=== PATIENT | female | born 1950 | race Caucasian/White ===

== ENCOUNTER 2020-11-16 13:58 | Outpatient (REF) | payer MEDICARE, SELFPAY ==
--- NOTE | ~2020-11-16 | XR_ITS ---
EXAMINATION: RIGHT FOOT AND RIGHT ANKLE. CLINICAL INFORMATION: Pain below and anterior right medial malleolus COMPARISON: None TECHNIQUE: 3 views right foot and 2 views right ankle. FINDINGS: RIGHT FOOT: There is no visible fracture, bony abnormality or dislocation. The soft tissues are normal. RIGHT ANKLE: The ankle mortise and subtalar joints are normal. There is a moderate size calcaneal heel spur. The soft tissues are normal. XR/XR ankle RT 2V IMPRESSION: Unremarkable right foot exam. Moderate-sized calcaneal heel enthesophyte. No acute fracture, dislocation or subluxation seen.
--- NOTE | ~2020-11-16 | XR_ITS ---
EXAMINATION: RIGHT FOOT AND RIGHT ANKLE. CLINICAL INFORMATION: Pain below and anterior right medial malleolus COMPARISON: None TECHNIQUE: 3 views right foot and 2 views right ankle. FINDINGS: RIGHT FOOT: There is no visible fracture, bony abnormality or dislocation. The soft tissues are normal. RIGHT ANKLE: The ankle mortise and subtalar joints are normal. There is a moderate size calcaneal heel spur. The soft tissues are normal. XR/XR foot RT min 3V IMPRESSION: Unremarkable right foot exam. Moderate-sized calcaneal heel enthesophyte. No acute fracture, dislocation or subluxation seen.
== END 2020-11-16 13:59 | disposition home or self-care (01) ==
LOC: HO.HMGCX 13:58
PROVIDERS: PCP Internal Medicine; Visit Provider Internal Medicine
DX: M25.571 Pain in right ankle and joints of right foot (principal)
CPT/HCPCS: 73600; 73630

== ENCOUNTER 2022-04-07 07:58 | Emergency (ER) | payer MEDICARE, OTHER, SELFPAY ==
[2022-04-07 08:02] VITALS: BP 178/71; PULSE 80; RESP 19; TEMP 36.6; O2SAT 99; BMI 26.6
--- NOTE | 2022-04-07 09:43 | ED.EYEPROB ---
HPI - Eye Problem General Chief complaint: Eye Problems Stated complaint: flashes of light in L eye Time Seen by Provider: 04/07/22 09:37 Source: patient Mode of arrival: ambulatory Limitations: no limitations History of Present Illness HPI Narrative: 71yo female with history of HTN, HLD who wears corrective lenses who presents with reports of flashing lights to the left eye since 3am. Patient reports these flashing lights are intermittent. After hearing a loud noise at 3am she woke up and noticed flashing lights to the left eye. She went back to bed and when she woke up she noticed continued symptoms. They have been intermittent since then. She denies associated eye floaters, vision changes, eye pain, eye discharge, headache, photophobia. Patient reports that she has see Dr. Diez however he recently left the practice. She does have an appointment with Dr. Bergman for her initial visit in September. She denies any history of glaucoma, retinal problems. Related Data Allergies Allergy/AdvReac Type Severity Reaction Status Date / Time scopolamine AdvReac Unknown Verified 04/07/22 09:21 Review of Systems Review of Systems: Yes all other systems are reviewed and are negative Constitutional: Constitutional: Reports no additional constitutional complaints, Denies body ache(s), Denies chills, Denies fever(s), Denies headache(s) and Denies weakness Eyes: Eyes: Reports no additional eye complaints, Denies blurry vision, Denies change in vision, Denies eye discharge, Denies irritation, Denies eye pain, Reports requires corrective lenses, Reports seeing flashes and Denies photophobia ENT: Reports system reviewed and no additional complaints, except as documented, Denies dizziness, Denies headache(s), Denies nasal congestion, Denies nasal discharge and Denies neck pain Cardiovascular: Cardiovascular: Reports no additional cardiovascular complaints, Denies chest pain, Denies leg edema and Denies dyspnea Respiratory: Respiratory: Reports no additional respiratory complaints, Denies cough and Denies dyspnea Gastrointestinal: Gastrointestinal: Reports no additional gastrointestinal complaints, Denies abdominal pain, Denies diarrhea, Denies nausea and Denies vomiting Genitourinary: Genitourinary: Reports no additional female genitourinary complaints and Denies urinary incontinence Musculoskeletal: Musculoskeletal: Reports no additional musculoskeletal complaints, Denies back pain, Denies arthralgias, Denies joint swelling, Denies neck pain, Denies numbness and Denies tingling Integumentary/Breasts: Skin/Breast: Reports system reviewed and no additional complaints, except as docu and Denies rash Neurologic: Reports system reviewed and no additional complaints, except as documented, Denies Abnormal speech present, Denies dizziness, Denies headache(s), Denies numbness, Denies tingling and Denies weakness [facility] Past Medical History Attestation statement: The following information was validated with the patient. Source: old records reviewed and nursing notes reviewed Social History Social History Advance Directives: Yes Advance Directives Information Provided: Yes Advance Directives on File: No Physical Exam Vital Signs: Vital Signs: Last Vital Signs Temp 98 F 04/07/22 08:02 Pulse 64 04/07/22 10:22 Resp 16 04/07/22 10:22 BP 165/77 H 04/07/22 10:22 Pulse Ox 97 04/07/22 10:22 O2 Del Method 04/07/22 10:22 BMI result Body Mass Index 26.6 Const: General: cooperative, healthy appearing, comfortable and no acute distress Orientation/consciousness: patient oriented x3 Limitations: no limitations HEENT: Head: Yes normal to inspection Ears: hearing grossly normal bilaterally General nose exam: Normal external nose present Face and sinus: Yes normal facial exam Mouth: Normal oral and palatal mucosa present Throat: Yes posterior oropharynx normal Eyes: Other: IOP right eye 14 IOP left eye 16 See visual acuity documentation by nursing -ultrasound bedside done by Dr. Finley. No retinal or lens detachment visualized. General: appearance normal, both eyes and all related structures Visual Arteaga: normal visual arteaga by confrontation Alignment and Position: alignment normal Periorbital: periorbital findings normal Eyelids: Yes eyelids normal Conjunctivae: conjunctivae normal Sclerae: sclerae normal Corneas: corneas normal Pupils: Equal, round and reactive pupils present EOM: EOMs intact bilaterally Direct Ophthalmoscopy: normal light reflex, no photophobia, no papilledema, fundi normal bilaterally, anterior chamber normal and No photophobia Neck: Neck: Yes normal visual inspection Chest: Chest palpation & inspection: normal inspection of the chest Resp: Effort & Inspection: normal respiratory effort Auscultation: clear to auscultation bilaterally Cardio: Rate: regular rate Rhythm: regular rhythm Peripheral pulses: Peripheral pulses 2+ throughout GI: Inspection: Yes normal to inspection Palpation (GI): Soft to palpation and nontender Auscultation: normal bowel sounds Back/Spine/Pelvis: Thoracic/Lumbar Spine: thoracic and lumbar spine normal to inspection Skin: General skin exam: no rashes or lesions noted Neuro: General: patient oriented x3, no focal motor deficits and normal sensation to monofilament Cranial nerves: Yes Equal, round and reactive pupils present Cognition (Neuro): normal cognition Speech: No Abnormal speech present Gait exam (Neuro): Normal gait present Motor exam (neuro): 5/5 motor strength present throughout Extrem: General: Yes normal to inspection Course Course Course Narrative: visual acuity is 20/25 bilaterally with corrective lenses. Eye pressures are normal. Eye exam is normal. Ultrasound of the left eye done by Dr. Finley at the bedside shows no obvious retinal detachment or lens detachment. Patient is mildly hypertensive. Patient will need to follow up outpatient with Ophthalmology. She tells me she does not have an appointment with Dr. Bergman until September of 2022. Will discuss patient with Ophthalmology prior to dispo to ensure adequate follow-up. Consultations Consultation #1: [id number]-Spoke to Dr Prabhakar who will see patient in office. Recommended patient call Saturday to establish appointment. MDM - Eye Problem MDM Narrative Medical decision making narrative: This is a 71-year-old female who wears corrective lenses with a history of hypertension, hyperlipidemia who presents with intermittent flashing lights to the left eye since 03:00 with no associated headache, photophobia, eye floaters, eye pain, eye discharge, visual changes. Patient denies any recent travel or recent cough or cold symptoms. No injury or trauma. Will need visual acuity, eye exam, eye pressures and retinal ultrasound Consider retinal detachment, acute angle glaucoma Medical Records Attestation: I reviewed the patient's medical records. Lab Data Attestation: I reviewed the patient's lab results. Discharge Plan Discharge Clinical Impression: Flashing lights Patient Disposition: Home, Self-Care Instructions: Blurred Vision (ED) Additional Instructions: Everything looks normal today on your eye exam. I did speak to the moisture machine tender Dr. Bergman and he recommended that you call his office on Saturday to set up an appointment to see him in the next few weeks. Return for eye pain, floaters in the vision, curtain of blackness coming over the eye Referrals: Al Bergman [Physician] - 3 days Interventions: ED Discharge Assessment Last Done: 04/07/22 10:57 Discharge Date/Time: 04/07/22 10:58
[2022-04-07 10:22] VITALS: BP 165/77; PULSE 64; RESP 16; O2SAT 97
[2022-04-07] MEDS: Tetracaine HCl/PF 0.5% Oph Sol 4 ML DROPS 1 DROP EYE-BOTH (10:22)
== END 2022-04-07 10:58 | disposition home or self-care (01) ==
PROVIDERS: Emergency Provider Emergency Medicine; PCP Internal Medicine
DX: H53.8 Other visual disturbances (principal)
CPT/HCPCS: 99283

== ENCOUNTER 2023-07-19 09:15 | Outpatient (REF) | payer MEDICARE, OTHER, SELFPAY | END 2023-07-19 09:16 | disposition home or self-care (01) | LOC: HO.SH 09:15 | PROVIDERS: Visit Provider Internal Medicine | DX: Z01.118 Encounter for examination of ears and hearing with other abnormal findings (principal); H90.3 Sensorineural hearing loss, bilateral | CPT/HCPCS: 92557 ==

== ENCOUNTER 2024-07-02 12:55 | Outpatient (REF) | payer MEDICARE, SELFPAY | END 2024-07-02 12:56 | disposition home or self-care (01) | LOC: HO.HMGCX 12:55 | PROVIDERS: PCP Internal Medicine; Visit Provider Internal Medicine | DX: M25.561 Pain in right knee (principal) | CPT/HCPCS: 73564 ==

== ENCOUNTER 2025-01-13 09:15 | Outpatient (AMB) | payer MEDICARE, SELFPAY ==
--- NOTE | 2025-01-13 09:20 | A.OFFPC_ITS ---
Vital Signs 01/13/25 09:28 Height 5 ft 3.58 in Weight 170 lb 8 oz BMI 29.7 BP 138/80 Blood Pressure Location Rt brachial Position Sitting Respiration 16 Pulse 62 Pulse Source Pulse Oximeter Temp 97.2 F Temp Source Temporal Artery Scan Pulse Oximetry (%) 96 Oxygen Delivery Method Room Air Intake Visit Reasons: Establish Care Equipment Sterilizer Required: No Accompanied by: Self / Same As Patient Allergies scopolamine Adverse Reaction (Verified 01/13/25 10:40) Unknown Medication List - Last Reconciled 01/13/25 by Mariaelena Michaels PA-C calcium carbonate 600 mg PO BID cholecalciferol (vitamin D3) 50 mcg PO DAILY loratadine (Claritin) 10 mg PO DAILY metoprolol tartrate 50 mg PO BID naproxen 500 mg PO BID simvastatin 20 mg PO DAILY Tobacco use date assessed: 01/13/25 Fall risk assessment: 1 Fall in past year Last assessed Fall Risk: 01/13/25 Dental Screening Dental Screen Date: 01/13/25 Did you have a dental visit in the last 12 months?: Yes Did you have a dental problem in the last 6 months where you did not have access to dental care?: No Was dental information given to patient?: Patient has dentist HPI Establish Care HPI Details The patient is a 74-year-old female presenting for establishment of care and management of chronic conditions. The patient has a history of vitamin D deficiency, for which she is currently taking supplements. She reports allergic rhinitis, managed with Claritin and weekly allergy injections at Dr. Quinones's office. Hypertension is controlled with metoprolol, and she also takes simvastatin for h yperlipidemia. The patient experienced a fall resulting in knee pain, diagnosed as osteoarthritis, managed with naproxen. She has flatfoot, diagnosed several years ago, and uses orthotics for manage ment. Recently, she developed peripheral neuropathy in the right foot, treated with naproxen and a Medrol pack. The patient has a history of urinary tract infections, treated with Bactrim DS and Augmentin. She was diagnosed with osteopenia following a bone scan two years ago and started on calcium carbonate. A heart murmur was noted during the examination, and an echocardiogram was suggested for further evaluation. Suspected sleep apnea was discussed, and a home sleep study was recommended. Social History - Family status: , underg oing physical therapy after femur fracture. [facility] Medical History (Updated 01/13/25 @ 13:04 by Mariaelena Michaels PA-C) Peripheral neuropathy Allergic rhinitis Vitamin D deficiency Overweight with body mass index (BMI) of 29 to 29.9 in adult Osteopenia Osteoporosis Needs sleep apnea assessment Heart murmur History of mammogram (~08/11/24) Flat foot Hypertension Hyperlipidemia History of recurrent UTI (urinary tract infection) Establishing care with new doctor, encounter for Surgical History History of colonoscopy (~02/2024) Family History Father Oral cancer Mother Dementia Social History Housing: House Alcohol intake: current Alcohol intake frequency: a few times a week Alcohol type: wine Patient Tobacco Use Status: Never used Tobacco service: No Current occupational status: retired Cognitive needs: No Hearing needs: No Vision needs: Yes (rx glasses) Questionnaire PHQ-9 Over the last 2 weeks, how often have you been bothered by any of the following problems? 1. Little interest or pleasure in doing things: not at all 2. Feeling down, depressed, or hopeless: not at all 3. Trouble falling or staying asleep, or sleeping too much: not at all 4. Feeling tired or having little energy: not at all 5. Poor appetite or overeating: not at all 6. Feeling bad about yourself - or that you are a failure or have let yourself or your family down: not at all 7. Trouble concentrating on things, such as reading the newspaper or watching television: not at all 8. Moving or speaking so slowly that other people could have noticed. Or the opposite - being so fidgety or restless that you have been moving around a lot more than usual: not at all 9. Thoughts that you would be better off or of hurting yourself in some way: not at all Total score: 0 Depression Screening Interpretation: Negative Depression Screening Done: Yes 85439 - PHQ-9 Billing: Yes Source: Developed by Drs. Ward Lea, May Camacho, Ralph Cooney and colleagues, with an educational clary from [employer]. Thrive Questionnaire Date Thrive assessed: 01/13/25 I am a: Patient What is your living situation today?: I have a steady place to live Within the past 12 months, did the food you bought not last and you didn't have the money to get more?: Never true Within the past 12 months, did you worry whether your food would run out before you got money to buy more?: Never true Do you have trouble paying for medicines?: No Do you have trouble getting transportation to medical appointments?: No Do you have trouble paying your heating and electricity bill?: No Do you have trouble taking care of your child, family member or friend?: No Do you have trouble with day-to-day activities such as bathing, preparing meals, shopping, managing finances, etc.?: No Are you currently unemployed and looking for a job?: No Are you interested in more education?: No Please select the resources that you would like help with: None Currently or been in a relationship where the following occur: No concerns reported THRIVE Score: 0 AUDIT C Alcohol Use Questionnaire (AUDIT-C) 1. How often do you have a drink containing alcohol?: 2-3 times a week 2. How many drinks containing alcohol do you have on a typical day when you are drinking?: 1 or 2 3. How often do you have six or more drinks on one occasion?: Never Total Score: 3 Score Reviewed/Action Taken: No JOAO-7 AMB Questionnaire JOAO-7 Date JOAO - 7 assessed: 01/13/25 Feeling nervous, anxious, or on edge: 0 = Not at all Not being able to stop or control worryin = Not at all Worrying too much about different things: 0 = Not at all Trouble relaxin = Not at all Being so restless that it is hard to sit still: 0 = Not at all Becoming easily annoyed or irritable: 0 = Not at all Feeling afraid as if something awful might happen: 0 = Not at all Total JOAO-7 score (0-4 normal; 5-9 mild; 10-14 moderate; 15-21 severe): 0 Source: Developed by Drs. Ward Lea, May Camacho, Ralph Cooney and colleagues, with an educational clary from [employer]. JOAO-7 Assessment Billing JOAO-7 Assessment Tool: JOAO-7 Assessment 61777 Review of Systems Const Details: - Cardiovascular: Denies chest pain, dyspnea, or leg swelling. - Neurological: Reports numbness in the right little toe. - Genitourinary: Reports history of urinary tract infections with hematuria. - Respiratory: Reports snoring, denies dyspnea. Physical exam (Primary Care) Vital Signs: Last Vital Signs Temp 97.2 F 01/13/25 09:28 Pulse 62 01/13/25 09:28 Resp 16 01/13/25 09:28 BP 138/80 01/13/25 09:28 Pulse Ox 96 01/13/25 09:28 Oxygen Delivery Method Room Air 01/13/25 09:28 Care Plan Goal for BP management: <140/90 BMI result Body Mass Index 29.7 BMI Assessment/Plan discussion: High BMI High, discussed plan: lifestyle, weight reduction, dietary, physical activity and alcohol moderation Tobacco/Smoking Status: Tobacco use Status Tobacco use date assessed 01/13/25 01/13/25 09:28 Patient Tobacco Use Status Never used Tobacco 01/13/25 09:41 PHQ-9: PHQ-9 Score PHQ-9: Total score 0 01/13/25 10:45 Depression Screening Interpretation: Negative Thrive Assessment: Date of Thrive Assessment Date Thrive assessed 01/13/25 01/13/25 09:28 Currently or been in a relationship where the following occur: No concerns reported Const Other: Appearance: Alert. Oriented X3. No acute distress. Head: Normal external exam. Normocephalic. Atraumatic. Eyes: Pupils are equal, round, and reactive to light. Extraocular movements intact. Conjunctiva and sclera normal. Eyelids normal. Ears: External auditory canal normal. Tympanic membranes normal. Throat: Pharynx normal. Uvula midline. Moist mucous membranes. Neck: Normal inspection. Neck supple. Full range of motion. No adenopathy. Thyroid Normal. No meningeal signs. No neck mass noted. Cardiovascular: Normal heart rate and rhythm. Heart sound normal. Slight heart murmur noted. Pulses normal throughout. Respiratory: No respiratory distress. Painless inspiration. Breath sounds normal. No wheezes/rales/rhonchi noted. Chest nontender. No accessory muscle usage noted or decreased air movement noted. Abdomen: Soft and nontender. Bowel sounds normal in all 4 quadrants. No distention noted. No organomegaly noted. No visible injury noted. Back: No costovertebral angle tenderness. Full range of motion noted. Skin: Skin warm and dry. Normal skin color. Normal skin turgor. No rashes/lesions/lacerations noted. Extremities: No lower extremity edema. Extremities exhibit normal range of motion. Extremities nontender. Neuro: Oriented X 3. No motor deficit. No sensory deficit. Reflexes normal. Results Reviewed Results Reviewed: - Mammogram: Normal, performed on 08/11/2024. - Colonoscopy: Normal, performed in February 2024. - Bone scan: Indicated osteopenia, performed two years ago. Coding Level of Care Code New Pt Level 4 (87054) Complex EM visit Add On G2211 Diagnoses Establishing care with new doctor, encounter for Z76.89 Vitamin D deficiency E55.9 Allergic rhinitis J30.9 Hypertension I10 Osteoporosis M81.0 Osteopenia M85.80 Flat foot M21.40 Peripheral neuropathy G62.9 Hyperlipidemia E78.5 History of recurrent UTI (urinary tract infection) Z87.440 Heart murmur R01.1 Needs sleep apnea assessment Z01.89 Overweight with body mass index (BMI) of 29 to 29.9 in adult E66.3; Z68.29 Additional Codes JOAO-7 Assessment Billing - JOAO-7 Assessment Tool: JOAO-7 Assessment 17286 ([id number]) PHQ-9 - 77606 - PHQ-9 Billing: Yes ([id number]) Time Spent (min) 50 Assessment & Plan Assessment & Plan (1) Establishing care with new doctor, encounter for: Code(s): Z76.89 - Persons encountering health services in other specified circumstances Category: Medical (2) Vitamin D deficiency: Code(s): E55.9 - Vitamin D deficiency, unspecified Category: Medical Plan: The patient will continue vitamin D supplementation to manage deficiency. Condition is chronic and stable will continue to monitor. (3) Allergic rhinitis: Code(s): J30.9 - Allergic rhinitis, unspecified Category: Medical Plan: The patient will continue Claritin and weekly allergy injections for management. Condition is chronic and stable will continue to monitor. (4) Hypertension: Code(s): I10 - Essential (primary) hypertension Category: Medical Plan: Hypertension is managed with metoprolol, and blood pressure will be monitored regularly. Condition is chronic and stable will continue to monitor. (5) Osteoporosis: Code(s): M81.0 - Age-related osteoporosis without current pathological fracture Category: Medical Plan: The patient will continue naproxen for pain management related to osteoporosis. Condition is chronic and stable will continue to monitor. (6) Osteopenia: Code(s): M85.80 - Other specified disorders of bone density and structure, unspecified site Category: Medical Plan: The patient will continue calcium carbonate supplementation for osteopenia management. Condition is chronic and stable will continue to monitor. (7) Flat foot: Code(s): M21.40 - Flat foot [pes planus] (acquired), unspecified foot Category: Medical Plan: The patient will continue using orthotics for flatfoot management. Condition is chronic and stable will continue to monitor. (8) Peripheral neuropathy: Code(s): G62.9 - Polyneuropathy, unspecified Category: Medical Plan: The patient will continue naproxen and has completed a Medrol pack for neuropathy management. Condition is chronic and stable will continue to monito r. (9) Hyperlipidemia: Code(s): E78.5 - Hyperlipidemia, unspecified Category: Medical Plan: The patient will continue simvastatin for hyperlipidemia management. Condition is chronic and stable will continue to monitor. (10) History of recurrent UTI (urinary tract infection): Comment: usually prescribed Bactrim Code(s): Z87.440 - Personal history of urinary (tract) infections Category: Medical Plan: The patient will be prescribed Bactrim DS for future urinary tract infections. Will continue to monitor patient denies any related complaints at this time. (11) Heart murmur: Code(s): R01.1 - Cardiac murmur, unspecified Category: Medical Plan: An echocardiogram is recommended to evaluate the heart murmur further. Patient has never been told she had a heart murmur. On evaluation heart murmur heard. This is new for the patient. Will evaluate with echocardiogram and continue to monitor. (12) Needs sleep apnea assessment: Code(s): Z01.89 - Encounter for other specified special examinations Category: Medical Plan: A home sleep study is recommended to assess for sleep apnea. (13) Overweight with body mass index (BMI) of 29 to 29.9 in adult: Code(s): E66.3 - Overweight; Z68.29 - Body mass index [BMI] 29.0-29.9, adult Category: Medical Plan: Condition is chronic and stable patient to improve her diet and exercise regimen. Plan Plan Patient was informed and verbally consented to the use of an ambient scribe for clinic note documentation during this visit. 1. Vitamin D Deficiency The patient will continue vitamin D supplementation to manage deficiency. 2. Allergic Rhinitis The patient will continue Claritin and weekly allergy injections for management. 3. Hypertension Hypertension is managed with metoprolol, and blood pressure will be monitored regularly. 4. Osteoarthritis The patient will continue naproxen for pain management related to osteoarthritis. 5. Flatfoot The patient will continue using orthotics for flatfoot management. 6. Peripheral Neuropathy The patient will continue naproxen and has completed a Medrol pack for neuropa thy management. 7. Hyperlipidemia The patient will continue simvastatin for hyperlipidemia management. 8. Osteopenia The patient will continue calcium carbonate supplementation for osteopenia management. 9. Urinary Tract Infection The patient will be prescribed Bactrim DS for future urinary tract infections. 10. Heart Murmur An echocardiogram is recommended to evaluate the heart murmur further. 11. Suspected Sleep Apnea A home sleep study is recommended to assess for sleep apnea. During the visit, I discussed the management of the patient's chronic conditions, including hypertension, hyperlipidemia, and osteoarthritis. We reviewed the need for continued medication adherence and the importance of regular monitoring. I recommended an echocardiogram to evaluate the heart murmur and a home sleep study to assess for sleep apnea. We also discussed the patient's history of urinary tract infections and the plan to use Bactrim DS for future occurrences. I emphasized the importance of follow-up visits every six months to monitor her health status and adjust treatment plans as necessary. Orders: Orders RT home sleep study Today Z01.89 - Encounter for other specified special examinations CA echo transthoracic complete Today R01.1 - Cardiac murmur, unspecified Patient Instructions: - Continue taking all prescribed medications as directed. - Schedule an echocardiogram to evaluate the heart murmur. - Arrange for a home sleep study to assess for sleep apnea. - Follow up in six months for routine monitoring and management of chronic con ditions. - Contact the office if any new symptoms arise or if there are concerns about current treatments.
[2025-01-13 09:28] VITALS: BP 138/80; PULSE 62; RESP 16; TEMP 36.2; O2SAT 96; BMI 29.7
--- OUTSIDE RECORDS SUMMARY | 2025-01-13 10:08 | XMS_ITS | Clinical Summary ---
Author Organization [facility] Address [address] [place] [address] Care Team Providers [employer] Name Role Phone Provider, Unknown Primary Care Provider [id number] Social History Tobacco Use Types Packs/Day Years Used Date Smoking Tobacco: Never Assessed Comments Unknown Sex and Gender Information Value Date Recorded Sex Assigned at Not on file Legal Sex Female 3:35 PM EDT Gender Identity Not on file Sexual Orientation Not on file Plan of Treatment Health Maintenance Due Date Last Done Comments Hepatitis C Virus Screening 1950 DTaP/Tdap/Td Vaccines (1 - Tdap) 12/26/1970 Mammogram 1991 Colonoscopy 12/26/1996 Pneumococcal Vaccines 50+ (1 of 1 - PCV) 12/26/2001 Zoster (Shingles) Vaccine (1 of 2) 12/26/2001 DXA Bone Density (Females,Ag es 65 and older) 12/26/2016 COVID-19 Vaccine (2023-2 5 season) 2024 Influenza Vaccine 02/26/2025 RSV Vaccine 60 years and old er and Patients (1 - 1-dose 75+ series) 12/26/2026 Hepatitis B Vaccines Aged Out No long er eligible based on patient's age to complete this topic Insurance TRAVELERS Care Teams [employer] Relationship Specialty Start Date End Date Provider, Unknown 1 DO NOT USE THIS RECORD PCP - General 06/29/16
== END 2025-01-13 10:15 | disposition home or self-care (01) ==
LOC: HO.HMCSH 09:15
PROVIDERS: PCP Internal Medicine; Visit Provider Physician Assistant Medical
DX: Z76.89 Persons encountering health services in other specified circumstances (principal); E55.9 Vitamin D deficiency, unspecified; J30.9 Allergic rhinitis, unspecified; I10 Essential (primary) hypertension; M81.0 Age-related osteoporosis without current pathological fracture; M85.80 Other specified disorders of bone density and structure, unspecified site; M21.40 Flat foot [pes planus] (acquired), unspecified foot; G62.9 Polyneuropathy, unspecified; E78.5 Hyperlipidemia, unspecified; Z87.440 Personal history of urinary (tract) infections; R01.1 Cardiac murmur, unspecified; Z01.89 Encounter for other specified special examinations; E66.3 Overweight; Z68.29 Body mass index [BMI] 29.0-29.9, adult

== ENCOUNTER → 2025-01-13 09:15 | Outpatient (BNVA) | payer MEDICARE, SELFPAY | PROVIDERS: PCP Internal Medicine; Visit Provider Physician Assistant Medical | DX: I10 Essential (primary) hypertension (principal); E55.9 Vitamin D deficiency, unspecified; J30.9 Allergic rhinitis, unspecified; G62.9 Polyneuropathy, unspecified; M85.80 Other specified disorders of bone density and structure, unspecified site; R01.1 Cardiac murmur, unspecified; M81.0 Age-related osteoporosis without current pathological fracture; M21.40 Flat foot [pes planus] (acquired), unspecified foot; E78.5 Hyperlipidemia, unspecified; E66.3 Overweight; Z68.29 Body mass index [BMI] 29.0-29.9, adult; Z87.440 Personal history of urinary (tract) infections; Z01.89 Encounter for other specified special examinations | CPT/HCPCS: 96127; 99202 ==

== ENCOUNTER → 2025-02-18 08:50 | Outpatient (REF) | payer MEDICARE, OTHER, SELFPAY ==
--- NOTE | 2025-02-18 08:52 | CA_ITS ---
Transthoracic Echocardiogram Patient (Last, First, Middle): Eloisa Gutierrez M Gender: Female Date of : 1950 Age: 74 Procedure Date: 02/18/2025 Procedure Type: Transthoracic Echocardiogram Location: OP Height: 160.02 cm Weight: 77.11 kg BSA: 1.80 m2 Heart Rate: bpm BP: 138 / 80 mmHg Escrow Agent: LYDIA Referring MD: Mariaelena Michaels PA-C Bacon De Rinder: Lico Thapa MD Symptoms: R01.1 - Cardiac murmur, unspecified Study Quality: Adequate ECG Rhythm: Sinus Conclusions: - 1. Normal LV ejection fraction of 65-70% with impaired relaxation filling pattern 2. Mild aortic regurgitation 3. Normal RV systolic pressure 4. No gross pericardial effusion Findings Left Ventricle Normal left ventricular size, thickness, and systolic function. The visually estimated ejection fraction is between 65-70%. Spectral Doppler is indicative of an impaired relaxation filling pattern. E/E prime ratio is between 8 and 15 consistent with indeterminate filling pressures. Right Ventricle Normal right ventricular cavity size and systolic function. Atria Both atria are normal in size. There is no evidence of interatrial shunt. Aortic Valve The aortic valve was not well visualized. There is no aortic valve stenosis. There is mild aortic valve regurgitation. Mitral Valve Normal mitral valve structure and function. There is trace mitral valve regurgitation. There is no mitral valve stenosis. Pulmonic Valve The pulmonic valve was not well visualized. Tricuspid Valve Likely normal tricuspid valve structure and function. There is trace tricuspid valve regurgitation. The right ventricular systolic pressure is normal. The right ventricular systolic pressure is 27 mmHg. Normal right atrial pressure. There is no evidence of pulmonary hypertension. Great Vessels All visible segments of the aorta are normal in size. The pulmonary artery was not well visualized. There is no dilatation of the ascending aorta measuring 3.00 cm. Venous The inferior vena cava is normal in size and collapses greater than 50% with inspiration. Pericardium/Pleural There is no evidence of pericardial effusion. Prior Study Comparison No prior study available for comparison. Measurements 2D Linear Measurements IVSd: 1.06 0.6-0.9/0.6-1.0 cm LVIDd: 3.94 3.9-5.3/4.2-5.9 cm LVIDd Index: 2.19 2.4-3.2/2.2-3.1 cm/m2 LVIDs: 2.51 2.0-3.6 cm LVPWd: 0.95 0.7-1.1 cm LA Diam: 3.50 2.7-3.8/3.0-4.0 cm LAIDs Index: 1.94 1.5-2.3 cm/m2 LV Mass: 155.90 67-162/88-224 g LV Mass Index: 86.61 43-95/49-115 g/m2 LVOT Diam: 2.10 3.0+(-)1.3 cm 2D Systolic Function EF 4C: 68.40 >55% EF 2C: 71.00 >55% EF BiP: 70.10 >55% Mitral Valve MV Pk E: 0.75 MV PK A: 0.61 MV Decel Time: 164.00 E/A: 1.20 E'Lateral: 9.25 E'Medial: 6.42 E/E' Med: 11.60 E/E' Lat: 8.10 PHT: 48.00 MVA PHT: 4.58 Decel [place]: 4.55 Aortic Valve AoV Pk Jose: 1.52 AoV Mn Jose: 1.14 AoV VTI: 0.39 AoV Pk Grad: 9.00 Aov Mn Grad: 6.00 FRANCES Cont.VTI: 2.50 LVOT LVOT Pk Jose: 1.16 LVOT Mn Jose: 0.74 LVOT VTI: 0.28 LVOT Pk Grad: 5.00 LVOT Mn Grad: 3.00 LVOT Diam: 2.10 LVOT Area: 3.46 Diastolic Function MV Pk E: 0.75 MV Pk A: 0.61 E/A: 1.20 E'Medial: 6.42 E/E' Med: 11.60 E' Laterial: 9.25 E/E' Lat: 8.10 Right Ventricle TAPSE (mm): 32.50 TVS' Jose: 11.70 Tricuspid Valve TR Pk Jose: 2.46 TR Pk Grad: 24.00 RA Press: 3.00 RVSP: 27.00 Great Vessels Aorta Sinus of Valsalva: 2.67 2.0-3.[address] [place]: 2.38 1.7-3.4 cm Ao Asc: 3.00 2.1-3.4 cm Updated in Other Vendor System with Status of Final Lico Thapa MD electronically signed on 02/18/2025 12:17:11 PM with status of Final
--- OUTSIDE RECORDS SUMMARY | 2025-02-18 09:17 | XMS_ITS | Patient Health Record ---
Author Organization [facility] Address [address] [place] [address] Care Team Providers Care Theatre Arts Professor Name Role Phone Dale Aguilar Primary Care Provider Evonne Henderson Unavailable [phone] Vicky Baptiste Unavailable [phone] Allergies Allergen (clinical drug ingredient) Drug/Non Drug Allergy documented on EMR Reaction Allergy Type Onset Date Status Enviermental Allergies (uncoded) Unknown Allergy Active scopolamine Scopolamine urinary retention Drug Allergy Active Reason For Referral No Information Medications Medication SIG (Take, Route, Frequency, Duration) Notes Start Date End Date Status Centrifugal Separator Syringe No t-Taking Medrol cesar 4mg as directed orally a s directed; Duration: 6 days 01/07/2025 Active Voltaren 1 % as directed Externally Active Claritin Active Metoprolol Succinate ER 50 MG 1 tablet Orally Once a day Active Naproxen 500 MG PRN Orally Twice a day PRN Active Simvastatin 20 MG 1 tablet in the even ing Orally Once a day Active Vitamin D 50 MCG (1999) as directed Orally Once a day Active Immunizations Vaccine Route Administration Date Status Comme nts Influenza Unknown 03/28/2021 Administered COVID-19 Pfizer BioNTech Vaccine Unknown 04/23/2021 Administered 1st 08/19/2020 2nd 09/09/2020 Social History Tobacco Use: Social History Observation Description Date Details (start date - stop date) Never Smoker NA - NA Tobacco use other than smoking: Question Answer Notes Are you an other tobacco user? No Tobacco Control (Standard) Question Answer Notes Tobacco use: Nonsmoker Additional Findings: Tobacco non-user Current no nsmoker AUDIT-C (Standard) Question Answer Notes Did you have a drink contain ing alcohol in the past year? Yes How often did you have a dri nk containing alcohol in the past year? Declined to specify (0 point) How many drinks did you have on a typical day when you were drinking in the past year? Declined to specify (0 point) How often did you have six o r more drinks on one occasion in the past year? Declined to specify (0 point) Points 0 Interpretation Negative Problems Problem Type SNOMED Code ICD Code Onset Dates Problem Status W/U Status Risk Notes Problem Localized, primary osteoarthritis of the ankle and/or foot (622196281) Primary osteoarthrit is, right ankle and foot (M19.071) Active confirmed Problem Localized, primary osteoarthritis of the ankle and/or foot (135489503) Primary osteoarthrit is, left ankle and foot (M19.072) Active confirmed Problem Neuritis of right foot (G57.91) Active confirmed Vital Signs Blood pressure diastolic 74 mm Hg 01/07/2025 Height 5ft 4in in 01/07/2025 Blood pressure systolic 130 mm Hg 01/07/2025 Weight 167 lbs 01/07/2025 BMI 28.66 kg/m2 01/07/2025 Encounters Encounter Location Date Provider Diagnosis [facility] [address] [address] 01/07/2025 Evonne Henderson Pain in right foot M79.671 and Neuritis of right foot G57.[address] [facility] [address] [address] 01/07/2025 Evonne Henderson [facility] [address] 01/07/2025 Vicky Baptiste Assessments Encounter Date Diagnosis (ICD Code) Assessment Notes Treatment Notes Treatment Clinical Notes Section Notes 01/07/2025 Pain in right foot (ICD-10 - M79.671) 01/07/2025 Neuritis of right foot (ICD-10 - G57.91) Plan Of Treatment Pending Test Test Name Order Date X ray : Ankle, right 2V 06/19/2021 X ray : Foot, left 3V 06/19/2021 X ray : Foot, right 3V 06/19/2021 X ray : Foot, right 3V 01/07/2025 Next Appt Details Provider Name:Evonne donaldson, 03/17/2025 04:00:00 PM, [address] [facility], [place], [address], Insurance Providers Payer Name Payer Address Payer Phone Subscriber Number Group Number Insured Name Patient Relationship to Insured Coverage Start Date Coverage End Date Medicare National Govt [facility] [address] [place] [address] [id number] Eloisa Gutierrez Self - patient is the insured [employer] [address] [address] [place] [id number] Eloisa Gutierrez Self - patient is the insured Medical (General) History Medical History History ICD Code CAD (Cholesterol) High blood pressure chronic sinusitis Measles Mumps Chicken pox UTIs in past Back,Hip,and Knee pain Cholesterol covid-19 High Blood Pressure Numbness sinusitis Surgical History Surgery Date(Month/Year) eyes lift 2009 ? nasal septem repair surgery 2018
--- OUTSIDE RECORDS SUMMARY | 2025-02-18 09:17 | XMS_ITS | Clinical Summary ---
Author Organization [facility] Address [address] [place] [address] Care Team Providers Care Concrete Building Assembler Name Role Phone Provider, Unknown Primary Care [...] complete this topic Insurance TRAVELERS Care Teams Concrete Building Assembler Relationship Specialty Start Date End Date Provider, Unknown 1 DO NOT USE THIS RECORD PCP - General 06/29/16
== END ==
LOC: HO.CARD 08:50
PROVIDERS: PCP Internal Medicine; Visit Provider Physician Assistant Medical
DX: R01.1 Cardiac murmur, unspecified (principal)
CPT/HCPCS: 93306

== ENCOUNTER → 2025-02-18 08:52 | Outpatient (BNV) | payer MEDICARE, OTHER, SELFPAY | PROVIDERS: PCP Internal Medicine; Visit Provider Internal Medicine Cardiovascular Disease | DX: I35.1 Nonrheumatic aortic (valve) insufficiency (principal); R01.1 Cardiac murmur, unspecified | CPT/HCPCS: 93306 ==

== ENCOUNTER 2025-03-15 14:00 | Outpatient (AMB) | payer MEDICARE, OTHER, SELFPAY ==
--- OUTSIDE RECORDS SUMMARY | 2025-03-15 14:48 | XMS_ITS | Patient Health Record ---
Author Organization [facility] Address [address] [place] [address] Care Team Providers Care Laborer Beam House Name Role Phone Dale Aguilar Primary Care Provider Evonne Henderson Unavailable [phone] Vicky Baptiste Unavailable [phone] Allergies Allergen (clinical drug ingredient) Drug/Non Drug Allergy documented on EMR Reaction Allergy Type Onset Date Status Enviermental Allergies (uncoded) Unknown Allergy Active scopolamine Scopolamine urinary retention Drug Allergy Active Reason For Referral No Information Medications Medication SIG (Take, Route, Frequency, Duration) Notes Start Date End Date Status Jr. Systems Administrator Syringe No t-Taking Medrol cesar 4mg as [...] primary osteoarthritis of the ankle and/or foot (860080374) Primary osteoarthrit is, right ankle and foot (M19.071) Active confirmed Problem Primary osteoarthrit is, left ankle and foot (M19.072) Active confirmed Problem Mononeuropathy of lower limb (590145618) Neuritis of right foot (G57.91) Active confirmed Vital Signs Blood pressure diastolic 74 mm Hg 01/07/2025 Height 5ft 4in in 01/07/2025 Blood pressure systolic 130 mm Hg 01/07/2025 Weight 167 lbs 01/07/2025 BMI 28.66 kg/m2 01/07/2025 Encounters Encounter Location Date Provider Diagnosis [facility] [address] [address] 01/07/2025 Evonne Henderson Pain in right foot M79.671 and Neuritis of right foot G57.[address] [facility] [address] 01/07/2025 Evonne Henderson [facility] [address] 01/07/2025 Vicky Baptiste Assessments Encounter Date Diagnosis [...] Provider Name:Evonne donaldson, 03/17/2025 04:00:00 PM, [address] [place], [address], Insurance Providers Payer Name Payer Address Payer Phone Subscriber Number Group Number Insured Name Patient Relationship to Insured Coverage Start Date Coverage End Date Medicare National Govt [facility] [address] [place] [address] [id number] Eloisa Gutierrez Self - patient is the insured [employer] [address] [address] [place] [phone] [id number] Eloisa Gutierrez Self - patient is the insured Medical (General) History Medical History History ICD Code CAD (Cholesterol) High blood pressure chronic sinusitis Measles Mumps Chicken pox UTIs in past Back,Hip,and Knee pain Cholesterol covid-19 High Blood Pressure Numbness sinusitis Surgical History Surgery Date(Month/Year) eyes lift 2009 ? nasal septem repair surgery 2018
--- OUTSIDE RECORDS SUMMARY | 2025-03-15 14:48 | XMS_ITS | Clinical Summary ---
Author Organization [facility] Address [address] [place] [address] Care Team Providers Care Electrical Designer Drafter Name Role Phone Provider, Unknown Primary Care [...] complete this topic Insurance TRAVELERS Care Teams Electrical Designer Drafter Relationship Specialty Start Date End Date Provider, Unknown 1 DO NOT USE THIS RECORD PCP - General 06/29/16
== END 2025-03-15 14:05 | disposition home or self-care (01) ==
LOC: HO.HMGAL 14:00
PROVIDERS: PCP Internal Medicine; Visit Provider Registered Nurse Emergency
DX: J30.89 Other allergic rhinitis (principal)
CPT/HCPCS: 95117; 95165

== ENCOUNTER 2025-03-22 09:10 | Outpatient (AMB) | payer MEDICARE, OTHER, SELFPAY ==
--- OUTSIDE RECORDS SUMMARY | 2025-03-17 12:00 | XMS_ITS ---
Author Organization [facility] Address [address] [place] [address] Care Team Providers Care Veterinary Science Teacher Name Role Phone Dale Aguilar Primary Care Provider Evonne Henderson Unavailable [phone] Allergies Allergen (clinical drug ingredient) Drug/Non Drug Allergy documented on EMR Reaction Allergy Type Onset Date Status Enviermental Allergies (uncoded) Unknown Allergy Active scopolamine Scopolamine urinary retention Drug Allergy Active REASON FOR VISIT Foot pain Medications Medication SIG (Take, Route, Frequency, Duration) Notes Start Date End Date Status Simvastatin 20 MG 1 tablet in the even ing Orally Once a day Active Code And Test Clerk Syringe No t-Taking Medrol cesar 4mg as directed orally a s directed; Duration: 6 days 01/07/2025 Active Voltaren 1 % as directed Externally Active Vitamin D 50 MCG (1999) as directed Orally Once a day Active Naproxen 500 MG PRN Orally Twice a day PRN Active Metoprolol Succinate ER 50 MG 1 tablet Orally Once a day Active Claritin Active Social History Tobacco Use: Social History Observation [...] specify (0 point) Points 0 Interpretation Negative Vital Signs Height 5ft4in in 03/17/2025 Weight 167 lbs 03/17/2025 BMI 28.66 kg/m2 03/17/2025 Blood pressure systolic 130 mm Hg 03/17/20 25 Blood pressure diastolic 72 mm Hg 025 Encounters Encounter Location Date Provider Diagnosis [facility] [address] [place] [address] 03/17/2025 Evonne Henderson Pain in right foot M79.671 and Neuritis of right foot G57.91 Assessments Encounter Date Diagnosis (ICD Code) Assessment Notes Treatment Notes Treatment Clinical Notes Section Notes 03/17/2025 Pain in right foot (ICD-10 - M79.671) 03/17/2025 Neuritis of right foot (ICD-10 - G57.91) Plan Of Treatment Next Appt Details Follow Up: 2 Months, Reason: Provider Name:Evonne donaldson, 04/26/2025 08:30:00 AM, [address] [place] [address], [id number], Progress Notes * Eloisa GUTIERREZ MDOB:1950 ( 74 yo F)Acc No.[id number]:03/17/2025 Progress Note Patient: Eloisa ORTIZ Deanna Provider: Dina Henderson DPM :1950 A ge:74 Y S ex:Female Date:03/17/2025 Address:[address] [place], [place] [id number] Pcp:Dale Aguilar Subjective: * Chief Complaints: * F oot pain * HPI: F oot Pain: Nature: n umbness, tingling. Location: L ateral forefoot, right 5th toe. Duration: s everal months. Onset: h usband femur fracture at start of year, patient has been on her feet much more often than usual , with and without her orthotics which are a few years old. Course: w orse. Aggravated: a ny pressure. Treatments: r est/alter normal daily activity. * ROS: G eneral/Constitutional: Nausea d enies. V omiting d enies. H rosio Thirst d enies. L oss appetite d enies. C hills d enies. F atigue d enies.?Fever d enies. N ight Sweats d enies. U nexplained weight loss d enies. U nexplained weight gain d enies. H EENTM: Dentures d enies. D izziness d enies. G lasses/contacts a dmits. R etinopathy d enies. B lurred/double vision d enies. T MJ?admits. D ischarge/drainage d enies. I mplants d enies. S ore throat d enies. D ental implants a dmits. H manuel of hearing d enies. D ifficulty chewing/swallowing/speaking d enies. N ose bleeds d enies. S ore mouth d enies. ? R espiratory: On Oxygen d enies. P neumonia/pleurisy d enies.?Bronchitis d enies. E mphysema d enies. C oughing d enies. C ough blood?denies. S hortness of breath d enies. W heezing d enies. C ardiovascular: Pacemaker d enies. M LIFESTYLE DIRECTOR d enies. W PW d enies. C HF d enies. H eart attack d enies. S eptal defect d enies. R apid beat d enies. C hest pain d enies. A trial Fib. d enies. M urmur/Palpitations d enies. G astrointestinal: Hemorrhoids d enies. S tomach/Abdominal pain d enies. D ark blood stool d enies. I rritable bowel d enies. C onstipation d enies. D iarrhea d enies. H ematology: Swelling d enies. C lots d enies. V aricose Veins d enies. B ruising d enies. B leeding problem d enies. G enitourinary: Blood urine d enies. F requent/Painfu/urination/bladder control d enies. K idney stones d enies. I nfection (UTI) a dmits. N ephropathy d enies. s ex trans dis (STD) d enies. P rostate d enies. M usculoskeletal: Hammertoes d enies. B unions d enies. B ack Pain d enies. M uscle Cramps/ Resting d enies. M uscle cramps / walking d enies.?Generalized aches and pains a dmits. W eakness d enies. I nteg.: [place] d enies. S cars d enies. C orns/calluses?denies. I ngrown nails d enies. P ainful nails d enies. O pen Sores d enies. R ashes d enies. N eurologic: Difficulty sleeping d enies. B rain disorder d enies. N umbness a dmits. B alance trouble d enies. C onfusion d enies. F ainting/blackouts d enies. T ingling d enies. T remors d enies. * Medical History: * Surgical History: e yes lift 2009 ?nasal septem repair surgery 2019 * Hospitalization/Major Diagno stic Procedure: D enies Past Hospitalization * Family History: M other: . F ather: , cancer, diagnosed with Family history of arthritis.?Spouse: alive, heart attack. * Social History: T obacco Use: T obacco use other than smoking A re you an other tobacco user? N o Tobacco Control (Standard) T obacco use: N onsmoker A dditional Findings: Tobacco non-user C urrent nonsmoker M iscellaneous: C affeine: yes, frequency:, 1 Soda -2 Tea cups per day. Children: yes, 2. Exercise: no. Marital status: . 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 D rug/Alcohol: A JOSE DE JESUS-C (Standard) D id you have a drink containing alcohol in the past year? Y es H ow often did you have a drink containing alcohol in the past year? D eclined to specify (0 point) H ow many drinks did you have on a typical day when you were drinking in the past year? D eclined to specify (0 point) H ow often did you have six or more drinks on one occasion in the past year? D eclined to specify (0 point) P oints 0 I nterpretation N egative * Medications: T akingClaritin Metoprolol Succinate ER 50 MG Tablet Extended Release 24 Hour 1 tablet Orally Once a day Naproxen 500 MG Tablet PRN Orally Twice a day , Notes to Pharmacist: PRNSimvastatin 20 MG Tablet 1 tablet in the evening Orally Once a day Vitamin D 50 MCG (1999) Tablet as directed Orally Once a day Voltaren 1 % Gel as directed Externally Medrol cesar 4mg Tablet Therapy Pack as directed orally as directed Taking Claritin Taking Metoprolol Succinate ER 50 MG Tablet Extended Release 24 Hour 1 tablet Orally Once a day Taking Naproxen 500 MG Tablet PRN Orally Twice a day , Notes to Pharmacist: PRNTaking Simvastatin 20 MG Tablet 1 tablet in the evening Orally Once a day Taking Vitamin D 50 MCG (1999) Tablet as directed Orally Once a day Taking Voltaren 1 % Gel as directed Externally Taking Medrol cesar 4mg Tablet Therapy Pack as directed orally as directed Not-Taking/PRNAllergist Syringe Medication List reviewed and reconciled with the patientNot-Taking/PRN Code And Test Clerk Syringe Medication List reviewed and reconciled with the patient * Allergies: S copolamine: urinary retentionEnviermental Allergies: Allergyyes[Allergies Verified] Objective: * Vitals: H t: 5ft4in, Wt:167, BMI:28.66, Shoe size: 8.5, BP:130/72mm Hg, Ht-cm: 162.56 cm, Wt-k.75 kg. * Examination: N eurological: SENSORY: N eurological exam reveals intact sensorium, pain sensation normal, vibration sensation intact, pinprick sensation is normal in the lower extremities, Pt denies, anesthesia, burning, paresthesia, tingling, B/L. TINEL'S COMPRESSION: N egative sural nerve percussion, intermediate dorsal cutaneous nerve distribution. DEEP TENDON REFLEXES: A chilles, 2/4, B/L. N euroma Pain: PALPATION: N o interspace pain noted on palpation. ? O rthopedic: MUSCLE STRENGTH: 5 /5 all groups in a symmetrical fashion, B/L , 5/5 all groups in a symmetrical fashion , B/L. TENDONITIS: M ild tenderness along course of peroneal tendons. FOOTWEAR EVALUATION: s hoe gear properties exacerbate patients foot/toe deformity. G eneral Examination: GENERAL APPEARANCE: [place] a pleasant, alert, well-nourished, well-developed, well hydrated individual, who demonstrates proper attention to hygiene/body habitus, and is in no acute distress, Pt serves as own h istorian for office visit today. ORIENTED: p erson, place, and time. V ascular: DP PULSES (B): 3 /4, B/L. PT PULSES (B): 3 /4, B/L. CAPILLARY FILL TIME: i mmediate, all digits, B/L. TROPHIC CONDITION-TEXTURE/ELASTICITY/TURGOR/HAIR GROWTH (B):?normal, B/L. TEMPERTURE GRADIENT (C): w arm to cool, proximal to distal, B/L. PIGMENTATION: n ormal, B/L. EDEMA (C): a bsent, B/L. D ermatologic: SKIN FINDINGS: S kin exam reveals normal texture, elasticity, and turgor. There are no masses. The interspaces are clear. Assessment: * Assessment: 1. P ain in right foot - M79.671 (Primary) 2 . N euritis of right foot - G57.91 S pecify :Acute problem, Complicated w/ Multiple Tx Options(4),Dx New problem, Prognosis Uncertain (4) Plan: * Treatment: * Procedure Codes: * Preventive Medicine: Counseling: D iscussion: - 13: Office or other outpatient visit for the evaluation and management of an established patient, which required a medically appropriate history and/or examination and LOW level of DECISION MAKING for: 1 STABLE ACUTE UNCOMPLICATED PROBLEM, 2 OR MORE MINOR PROBLEMS, OR 1 STABLE CHRONIC PROBLEM, THAT POSE(S) A LOW RISK FOR MORBIDITY/MORTALITY. The visit on the day of the encounter encompassed interpreting the data and educating the patient as to the nature of their condition, treatment options available according to their individual PMH, meds, allergies, and overall health/living conditions, as well as any potential risks or complications that may occur from a failure to adhere to, and participate in, the recommended course of therapy. The discussion included a complete verbal, and/or written explanation of the examination results, any x-rays taken, the proposed diagnosis, and outline of the treatment plan. A schedule for future care needs was also explained. The patient verbalized an understanding of the instructions at this time and agreed to be an active participant in their treatment. If the patient should think of any questions or concerns after the visit, I have encouraged the patient to call the office. O rthotic Dispensing: T he patient presents today for fitting and dispensing of orthotics. The inserts were checked against the prescription and found to be accurate. They were properly fitted to the patients feet and shoes in both weight-bearing and non-weight bearing attitudes. The patient was instructed to gradually increase the amount of time they are wearing the orthoses, starting with one hour the first day and thereon progressively increasing the amount of time used by one hours per day until they are comfortable to be worn all day and with all activities. They were asked to call the office if any signs of skin irritation were noted including redness, blistering or callous formation. The patient verbally indicated a full understanding of all the above information. Screening/Special Tests: F all Risk Screening: N o falls in the past year F ALLS: Screening for Future Fall Risk Have you had any falls with injury in the past year? N o * Follow Up: 2 Months * Images: * Sign off status: Completed true * Provider: Dina Henderson DPM Date: 03/17/2025 Generated for Waldo chauhan/Patrick/Nadeemitting on: 03/22/2025 09:51 AM EDT History and Physical Notes * HPI (History of Present Illness) Category Sub-Category Detail Notes Category Not es Foot Pain Nature: numbness, tingling Location: Lateral forefoot, ri ght 5th toe Duration: several months Onset: femur fractu re at start of year, patient has been on her feet much more often than usual , with and without her orthotics which are a few years old Course: worse Aggravated: any pressure Treatments: rest/alter normal da rubin activity Examination Category Sub-Category Detail Notes Category Not es Neuroma Pain PALPATION: No interspace pain noted on palpation Neurological SENSORY: Neurological exa m reveals intact sensorium, pain sensation normal, vibration sensation intact, pinprick sensation is normal in the lower extremities, Pt denies, anesthesia, burning, paresthesia, tingling, B/L TINEL'S COMPRESSION: Negative sural nerv e percussion, intermediate dorsal cutaneous nerve distribution DEEP TENDON REFLEXES: Achilles, 2/4, B/L Dermatologic SKIN FINDINGS: Skin exam reveal s normal texture, elasticity, and turgor. There are no masses. The interspaces are clear Orthopedic FOOTWEAR EVALUATION: shoe gear p roperties exacerbate patients foot/toe deformity TENDONITIS: Mild tenderness mar g course of peroneal tendons MUSCLE STRENGTH: 5/5 all groups in a symmetrical fashion, B/L , 5/5 all groups in a symmetrical fashion , B/L General Examination GENERAL APPEARANCE: Reveals a pleasant, alert, well- nourished, well-developed, well hydrated individual, who demonstrates proper attention to hygiene/body habitus, and is in no acute distress, Pt serves as own historian for office visit today ORIENTED: person, place, and t pollo Vascular DP PULSES (B): 3/4, B/L PT PULSES (B): 3/4, B/L CAPILLARY FILL TIME: immediate, all digi ts, B/L TEMPERTURE GRADIENT (C): warm to cool, p roximal to distal, B/L TROPHIC CONDITION-TEXTURE/ELASTICITY/TURGOR/HAIR GROWTH (B): normal, B/L EDEMA (C): absent, B/L PIGMENTATION: normal, B/L
--- OUTSIDE RECORDS SUMMARY | 2025-03-22 09:51 | XMS_ITS | Clinical Summary ---
Author Organization [facility] Address [address] [place] [address] Care Team Providers Care National Park Tour Guide Name Role Phone Provider, Unknown Primary Care [...] complete this topic Insurance TRAVELERS Care Teams National Park Tour Guide Relationship Specialty Start Date End Date Provider, Unknown 1 DO NOT USE THIS RECORD PCP - General 06/29/16
== END 2025-03-22 14:23 | disposition home or self-care (01) ==
LOC: HO.HMGAL 09:10
PROVIDERS: PCP Physician Assistant Medical; Visit Provider Registered Nurse Emergency
DX: J30.89 Other allergic rhinitis (principal)
CPT/HCPCS: 95117; 95165

== ENCOUNTER 2025-03-31 10:14 | Outpatient (AMB) | payer MEDICARE, OTHER, SELFPAY ==
--- OUTSIDE RECORDS SUMMARY | 2025-03-02 04:30 | XMS_ITS ---
Author Organization [facility] Address [address] [place] [address] Care Team Providers Care Eyeglass Cutter Name Role Phone Dale Aguilar Primary Care Provider [phone] Evonne Henderson Unavailable [phone] Vicky Baptiste Unavailable [phone] REASON FOR VISIT r/s for sooner apt Encounters Encounter Location Date Provider Diagnosis [address] [address] 03/02/2025 Vicky Baptiste Plan Of Treatment Next Appt Details Provider Name:Evonne Alyse donaldson, 04/26/2025 08:30:00 AM, [address] [place], [address], Progress Notes * Eloisa GUTIERREZ MDOB:1950 ( 74 yo F)Acc No.[id number]:03/02/2025 Progress Notes Patient: Mario Eloisa KATHLEEN Provider: Kraig Baptiste DPM :1950 A ge:74 Y S ex:Female Date:03/02/2025 Address:[address] [place] [address] Pcp:Dale Aguilar Subjective: * Chief Complaints: * [...] 03/02/2025 Generated for Waldo chauhan/Patrick/Genesis on: 0 03/31/2025 11:46 AM EDT
--- OUTSIDE RECORDS SUMMARY | 2025-03-31 11:46 | XMS_ITS | Patient Health Record ---
Author Organization [facility] Address [address] [facility] [place] [address] Care Team Providers Care Associate Programmer Analyst Name Role Phone Dale Aguilar Primary Care Provider [phone] Evonne Henderson Unavailable [phone] Vicky Baptiste Unavailable [phone] Allergies Allergen (clinical drug ingredient) Drug/Non Drug Allergy documented on EMR Reaction Allergy Type Onset Date Status Enviermental Allergies (uncoded) Unknown Allergy Active scopolamine Scopolamine urinary retention Drug Allergy Active Reason For Referral No Information Medications Medication SIG (Take, Route, Frequency, Duration) Notes Start Date End Date Status Simvastatin 20 MG 1 tablet in the even ing Orally Once a day Active Naproxen 500 MG PRN Orally Twice a day PRN Active Metoprolol Succinate ER 50 MG 1 tablet Orally Once a day Active Claritin Active Radio Maintainer Syringe No t-Taking Medrol cesar 4mg as directed orally a s directed; Duration: 6 days 01/07/2025 Active Voltaren 1 % as directed Externally Active Vitamin D 50 MCG (1999) as directed Orally Once a day Active Immunizations Vaccine Route Administration Date Status Comme nts Influenza Unknown 03/28/2021 Administered Influenza Unknown 03/29/2024 Administered COVID-19 Pfizer BioNTech Vaccine Unknown 04/23/2021 [...] Problem Status W/U Status Risk Notes Problem Information temporarily unavailable Primary osteoarthriti s, right ankle and foot (M19.071) Active confirmed Problem Information temporarily unavailable Primary osteoarthriti s, left ankle and foot (M19.072) Active confirmed Problem Information temporarily unavailable Neuritis of right foot (G57.91) Active confirmed Vital Signs Blood pressure diastolic 72 mm Hg 03/17/2025 Height 5ft4in in 03/17/2025 Blood pressure systolic 130 mm Hg 03/17/2025 Weight 167 lbs 03/17/2025 BMI 28.66 kg/m2 03/17/2025 Encounters Encounter Location Date Provider Diagnosis [facility] [address] 01/07/2025 Evonne Henderson Pain in right foot M79.671 and Neuritis of right foot G57.[address] [facility] [address] 03/17/2025 Evonne Henderson Pain in right foot M79.671 and Neuritis of right foot G57.91 [facility] [address] 01/07/2025 Vicky Baptiste [facility] [address] 01/07/2025 Evonne Henderson Assessments Encounter Date Diagnosis (ICD Code) Assessment Notes Treatment Notes Treatment Clinical Notes Section Notes 01/07/2025 Pain in right foot (ICD-10 - M79.671) 03/17/2025 Pain in right foot (ICD-10 - M79.671) 03/17/2025 Neuritis of right foot (ICD-10 - G57.91) 01/07/2025 Neuritis of right foot (ICD-10 - G57.91) Plan Of Treatment Pending Test Test Name Order Date X ray : Ankle, right 2V 06/19/2021 X ray : Foot, left 3V 06/19/2021 X ray : Foot, right 3V 06/19/2021 X ray : Foot, right 3V 01/07/2025 Next Appt Details Provider Name:Evonne Cullen mendoza, 04/26/2025 08:30:00 AM, [address] [place], [address], Insurance Providers Payer Name Payer Address Payer Phone Subscriber Number Group Number Insured Name Patient Relationship to Insured Coverage Start Date Coverage End Date Medicare National Govt [facility] [address] [place] [address] [id number] Eloisa Gutierrez Self - patient is the insured [employer] [address] [address] [place] [id number] [phone] [id number] Eloisa Gutierrez Self - patient is the insured Medical (General) History Medical History History ICD Code CAD (Cholesterol) High blood pressure chronic sinusitis Measles Mumps Chicken pox UTIs in past Back,Hip,and Knee pain Cholesterol covid-19 High Blood Pressure Numbness sinusitis Surgical History Surgery Date(Month/Year) eyes lift 2009 ? nasal septem repair surgery 2018
== END 2025-03-31 10:28 | disposition home or self-care (01) ==
LOC: HO.HMGAL 10:14
PROVIDERS: PCP Physician Assistant Medical; Visit Provider Registered Nurse Emergency
DX: J30.89 Other allergic rhinitis (principal)
CPT/HCPCS: 95117; 95165

== ENCOUNTER → 2025-03-31 10:38 | Outpatient (REF) | payer MEDICARE, OTHER, SELFPAY ==
--- OUTSIDE RECORDS SUMMARY | 2025-03-31 12:23 | XMS_ITS | Clinical Summary ---
Author Organization [facility] Address [address] [place] [address] Care Team Providers Care Remote Sensing Scientist Name Role Phone Provider, Unknown Primary Care [...] Health Maintenance Due Date Last Done Comments Advance Care Planning 1950 Hepatitis C Virus Screening 1950 DTaP/Tdap/Td Vaccines (1 - Tdap) 12/26/1970 Mammogram 1991 Colonoscopy 12/26/1996 Pneumococcal Vaccines 50+ (1 of 1 - PCV) 12/26/2001 Zoster (Shingles) Vaccine (1 of 2) 12/26/2001 DXA Bone Density (Females,Ag es 65 and older) 12/26/2016 COVID-19 Vaccine ( - 2023-2 5 season) 2024 Influenza Vaccine 02/26/2025 RSV Vaccine 60 years and old er and Patients (1 - 1-dose 75+ series) 12/26/2026 Hepatitis B Vaccines Aged Out No long er eligible based on patient's age to complete this topic Insurance TRAVELERS Care Teams Remote Sensing Scientist Relationship Specialty Start Date End Date Provider, Unknown 1 DO NOT USE THIS RECORD PCP - General 06/29/16
== END ==
LOC: HO.SL 10:38
PROVIDERS: PCP Internal Medicine; Visit Provider Physician Assistant Medical
DX: Z01.89 Encounter for other specified special examinations (principal)
CPT/HCPCS: 95806

== ENCOUNTER → 2025-03-31 11:10 | Outpatient (BNV) | payer MEDICARE, OTHER, SELFPAY | PROVIDERS: PCP Internal Medicine; Visit Provider Internal Medicine | DX: R06.83 Snoring (principal) | CPT/HCPCS: 95806 ==

== ENCOUNTER 2025-04-05 11:31 | Outpatient (AMB) | payer MEDICARE, OTHER, SELFPAY ==
--- OUTSIDE RECORDS SUMMARY | 2025-03-02 04:30 | XMS_ITS ---
Author Organization [facility] Address [address] [place] [address] Care Team Providers Care Maintenance Mechanic Supervisor Name Role Phone Dale Aguilar Primary Care Provider Evonne Henderson Unavailable [phone] Vicky Baptiste Unavailable [phone] REASON FOR VISIT r/s for sooner apt Encounters Encounter Location Date Provider Diagnosis [address] [address] 03/02/2025 Vicky Baptiste Plan Of Treatment Next Appt Details Provider Name:Evonne Alyse donaldson, 04/26/2025 08:30:00 AM, [address] [place], [address], Progress Notes * Eloisa GUTIERREZ MDOB:1950 ( 74 yo F)Acc No.[id number]:03/02/2025 Progress Notes Patient: Mario Eloisa KATHLEEN Provider: Kraig Baptiste DPM :1950 A ge:74 Y S ex:Female Date:03/02/2025 Address:[address] [place] [address] Pcp:Dale Aguilar Subjective: * Chief Complaints: * [...] 0 03/02/2025 Generated for Waldo chauhan/Patrick/Genesis on: 0 04/05/2025 02:12 PM EDT
--- OUTSIDE RECORDS SUMMARY | 2025-04-05 14:13 | XMS_ITS | Clinical Summary ---
Author Organization [facility] Address [address] [place] [address] Care Team Providers Care Gift Manager Name Role Phone Provider, Unknown Primary Care [...] Density (Females,Ag es 65 and older) 12/26/2016 Influenza Vaccine 02/26/2025 COVID-19 Vaccine ( - 2023-2 5 season) 2025 RSV Vaccine 60 years and old er and Patients (1 - 1-dose 75+ series) 12/26/2026 Hepatitis B Vaccines Aged Out No long er eligible based on patient's age to complete this topic Insurance TRAVELERS Care Teams Gift Manager Relationship Specialty Start Date End Date Provider, Unknown 1 DO NOT USE THIS RECORD PCP - General 06/29/16
--- OUTSIDE RECORDS SUMMARY | 2025-04-05 14:13 | XMS_ITS | Patient Health Record ---
Author Organization [facility] Address [address] [place] [address] Care Team Providers Care Office Messenger Helper Name Role Phone Dale Agiular Primary Care Provider [phone] Evonne Henderson Unavailable [phone] Vicky Baptiste Unavailable [phone] Allergies Allergen (clinical drug ingredient) Drug/Non Drug [...] Orally Once a day Active Claritin Active Weatherstrip Machine Operator Syringe No t-Taking Medrol cesar 4mg as [...] primary osteoarthritis of the ankle and/or foot (266159968) Primary osteoarthrit is, right ankle and foot (M19.071) Active confirmed Problem Localized, primary osteoarthritis of the ankle and/or foot (109073646) Primary osteoarthrit is, left ankle and foot (M19.072) Active confirmed Problem Mononeuropathy of lower limb (288413879) Neuritis of right foot (G57.91) Active confirmed Vital Signs Blood pressure diastolic 72 mm Hg 03/17/2025 Height 5ft4in in 03/17/2025 Blood pressure systolic 130 mm Hg 03/17/2025 Weight 167 lbs 03/17/2025 BMI 28.66 kg/m2 03/17/2025 Encounters Encounter Location Date Provider Diagnosis [address] [address] 01/07/2025 Evonne Henderson Pain in right foot M79.671 and Neuritis of right foot G57.91 [facility] [address] 03/17/2025 Evonne Henderson Pain in right foot M79.671 and Neuritis of right foot G57.[address] [address] 01/07/2025 [facility] [address] 01/07/2025 Evonne Henderson Assessments Encounter Date Diagnosis [...] 01/07/2025 Next Appt Details Provider Name:Evonne donaldson, 04/26/2025 08:30:00 AM, [address] [place] [address], [phone], Insurance Providers Payer Name Payer Address Payer Phone Subscriber Number Group Number Insured Name Patient Relationship to Insured Coverage Start Date Coverage End Date Medicare National Govt [employer] [address] [place] [address] [id number] Eloisa Gutierrez Self - patient is the insured [employer] Claims [address] [address] [place] [id number] [phone] [id number] Eloisa Gutierrez Self - patient is the insured Medical (General) History Medical History History ICD Code CAD (Cholesterol) High blood pressure chronic sinusitis Measles Mumps Chicken pox UTIs in past Back,Hip,and Knee pain Cholesterol covid-19 High Blood Pressure Numbness sinusitis Surgical History Surgery Date(Month/Year) eyes lift 2009 ? nasal septem repair surgery 2018
== END 2025-04-05 11:33 | disposition home or self-care (01) ==
LOC: HO.HMGAL 11:31
PROVIDERS: PCP Internal Medicine; Visit Provider Registered Nurse Emergency
DX: J30.89 Other allergic rhinitis (principal)
CPT/HCPCS: 95117; 95165

== ENCOUNTER 2025-04-12 09:26 | Outpatient (AMB) | payer MEDICARE, OTHER, SELFPAY ==
--- OUTSIDE RECORDS SUMMARY | 2025-03-02 04:30 | XMS_ITS ---
Author Organization [facility] Address [address] [place] [address] Care Team Providers Care Rainbow Trout Farm Manager Name Role Phone Dale Aguilar Primary Care Provider [phone] Evonne Henderson Unavailable [phone] Vicky Baptiste Unavailable [phone] REASON FOR VISIT r/s for sooner apt Encounters Encounter Location Date Provider Diagnosis [address] [address] 03/02/2025 Vicky Baptiste Plan Of Treatment Next Appt Details Provider Name:Evonne Alyse donaldson, 04/26/2025 08:30:00 AM, [address] [place], [address], Progress Notes * Eloias GUTIERREZ MDOB:1950 ( 74 yo F)Acc No.[id number]:03/02/2025 Progress Notes Patient: Mario Eloisa KATHLEEN Provider: Kraig Baptiste DPM :1950 A ge:74 Y S ex:Female Date:03/02/2025 Address:[address] [place] [address] Pcp:Dale Aguilar Subjective: * Chief Complaints: * [...] 03/02/2025 Generated for Waldo chauhan/Patrick/Genesis on: 0 04/12/2025 11:15 AM EDT
--- OUTSIDE RECORDS SUMMARY | 2025-04-12 11:15 | XMS_ITS | Patient Health Record ---
Author Organization [facility] Address [address] [facility] [place] [address] Care Team Providers Care Nurse First Assist Name Role Phone Dale Aguilar Primary Care Provider [phone] Evonne Henderson Unavailable [phone] Vicky Baptiste Unavailable [phone] Allergies Allergen (clinical drug ingredient) Drug/Non Drug [...] Orally Once a day Active Claritin Active Sintering Plant Supervisor Syringe No t-Taking Medrol cesar 4mg as [...] primary osteoarthritis of the ankle and/or foot (469269806) Primary osteoarthrit is, right ankle and foot (M19.071) Active confirmed Problem Localized, primary osteoarthritis of the ankle and/or foot (531488494) Primary osteoarthrit is, left ankle and foot (M19.072) Active confirmed Problem Mononeuropathy of lower limb (609598977) Neuritis of right foot (G57.91) Active confirmed Vital Signs Blood pressure diastolic 72 mm Hg 03/17/2025 Height 5ft4in in 03/17/2025 Blood pressure systolic 130 mm Hg 03/17/2025 Weight 167 lbs 03/17/2025 BMI 28.66 kg/m2 03/17/2025 Encounters Encounter Location Date Provider Diagnosis [address] [address] 01/07/2025 Evonne Henderson Pain in right foot M79.671 and Neuritis of right foot G57.91 [facility] [address] 03/17/2025 Evonne Henderson Pain in right foot M79.671 and Neuritis of right foot G57.[address] [address] 01/07/2025 [facility]iste [facility] [address] 01/07/2025 Evonne Henderson Assessments Encounter Date Diagnosis [...] Details Provider Name:Evonne donaldson, 04/26/2025 08:30:00 AM, [address] [place] [address], [phone], Insurance Providers Payer Name Payer Address Payer Phone Subscriber Number Group Number Insured Name Patient Relationship to Insured Coverage Start Date Coverage End Date Medicare National Govt S[employer] [address] [place] [address] [id number] Eloisa Gutierrez Self - patient is the insured [employer] [address] [address] [place] [id number] [phone] [id number] Eloisa Gutierrez Self - patient is the insured Medical (General) History Medical History History ICD Code CAD (Cholesterol) High blood pressure chronic sinusitis Measles Mumps Chicken pox UTIs in past Back,Hip,and Knee pain Cholesterol covid-19 High Blood Pressure Numbness sinusitis Surgical History Surgery Date(Month/Year) eyes lift 2009 ? nasal septem repair surgery 2018
--- OUTSIDE RECORDS SUMMARY | 2025-04-12 11:15 | XMS_ITS | Clinical Summary ---
Author Organization [facility] Address [address] [place] [address] Care Team Providers Care Collection Technician Name Role Phone Provider, Unknown Primary Care [...] complete this topic Insurance TRAVELERS Care Teams Collection Technician Relationship Specialty Start Date End Date Provider, Unknown 1 DO NOT USE THIS RECORD PCP - General 06/29/16
== END 2025-04-12 09:59 | disposition home or self-care (01) ==
LOC: HO.HMGAL 09:26
PROVIDERS: PCP Internal Medicine; Visit Provider Registered Nurse Emergency
DX: J30.89 Other allergic rhinitis (principal)
CPT/HCPCS: 95117; 95165

== ENCOUNTER 2025-04-15 14:04 | Outpatient (REF) | payer MEDICARE, OTHER, SELFPAY ==
--- OUTSIDE RECORDS SUMMARY | 2025-04-15 16:04 | XMS_ITS | Clinical Summary ---
Author Organization [facility] Address [address] [place] [address] Care Team Providers Care Vortex Operator Name Role Phone Provider, Unknown Primary Care [...] complete this topic Insurance TRAVELERS Care Teams Vortex Operator Relationship Specialty Start Date End Date Provider, Unknown 1 DO NOT USE THIS RECORD PCP - General 06/29/16
== END 2025-04-15 14:05 | disposition home or self-care (01) ==
LOC: HO.SH 14:04
PROVIDERS: Visit Provider Physician Assistant Medical
DX: Z01.118 Encounter for examination of ears and hearing with other abnormal findings (principal); H90.3 Sensorineural hearing loss, bilateral
CPT/HCPCS: 92557

== ENCOUNTER 2025-04-19 13:34 | Outpatient (AMB) | payer MEDICARE, OTHER, SELFPAY ==
--- NOTE | 2025-04-19 13:34 | A.OFFPC_ITS ---
Intake Visit Reasons: Urinary tract infection School Childcare Attendant Required: No Allergies scopolamine Adverse Reaction (Verified 04/19/25 13:57) Unknown Medication List - Last Reconciled 04/19/25 by Mariaelena Michaels PA-C calcium carbonate 600 mg PO BID cholecalciferol (vitamin D3) 50 mcg PO DAILY loratadine (Claritin) 10 mg PO DAILY metoprolol tartrate 50 mg PO BID naproxen 500 mg PO BID nitrofurantoin monohyd/m-cryst 100 mg (Macrobid) 100 mg PO BID 5 days simvastatin 20 mg PO DAILY Tobacco use date assessed: 04/19/25 Dental Screening Dental Screen Date: 01/13/25 HPI Urinary tract infection HPI Details The patient is a 74-year-old female presenting with urinary symptoms suggestive of a urinary tract infection. She reports experiencing occasional burning sensation during urination, fatigue, and occasional back discomfort. The symptoms began over the weekend while she was in [place], and she attempted to alleviate them by increasing her water intake, which did not resolve the issue. She denies experiencing fever, nausea, vomiting, rashes, or abnormal discharge. [facility] Medical History (Updated 04/19/25 @ 13:59 by Mariaelena Michaels PA-C) UTI (urinary tract infection) Nocturnal hypoxemia Tricuspid regurgitation Mild aortic regurgitation Diastolic dysfunction Mild hearing loss Peripheral neuropathy Allergic rhinitis Vitamin D deficiency Overweight with body mass index (BMI) of 29 to 29.9 in adult Osteopenia Osteoporosis Needs sleep apnea assessment Heart murmur History of mammogram (~08/11/24) Flat foot Hypertension Hyperlipidemia History of recurrent UTI (urinary tract infection) Establishing care with new doctor, encounter for Surgical History History of colonoscopy (~02/2024) Family History Father Oral cancer Mother Dementia Social History Housing: House Alcohol intake: current Alcohol intake frequency: a few times a week Alcohol type: wine Patient Tobacco Use Status: Never used Tobacco service: No Current occupational status: retired Cognitive needs: No Hearing needs: No Vision needs: Yes (rx glasses) Questionnaire PHQ-9 Over the last 2 weeks, how often have you been bothered by any of the following problems? 1. Little interest or pleasure in doing things: not at all 2. Feeling down, depressed, or hopeless: not at all 3. Trouble falling or staying asleep, or sleeping too much: not at all 4. Feeling tired or having little energy: not at all 5. Poor appetite or overeating: not at all 6. Feeling bad about yourself - or that you are a failure or have let yourself or your family down: not at all 7. Trouble concentrating on things, such as reading the newspaper or watching television: not at all 8. Moving or speaking so slowly that other people could have noticed. Or the opposite - being so fidgety or restless that you have been moving around a lot more than usual: not at all 9. Thoughts that you would be better off or of hurting yourself in some wa y: not at all Total score: 0 Depression Screening Interpretation: Negative Depression Screening Done: Yes 42805 - PHQ-9 Billing: Yes Source: Developed by Drs. Ward Lea, May Camacho, Ralph Cooney and colleagues, with an educational clary from [employer]. Thrive Questionnaire Date Thrive assessed: 01/13/25 I am a: Patient What is your living situation today?: I have a steady place to live Within the past 12 months, did the food you bought not last and you didn't have the money to get more?: Never true Within the past 12 months, did you worry whether your food would run out before you got money to buy more?: Never true Do you have trouble paying for medicines?: No Do you have trouble getting transportation to medical appointments?: No Do you have trouble paying your heating and electricity bill?: No Do you have trouble taking care of your child, family member or friend?: No Do you have trouble with day-to-day activities such as bathing, preparing meals, shopping, managing finances, etc.?: No Are you currently unemployed and looking for a job?: No Are you interested in more education?: No Please select the resources that you would like help with: None Currently or been in a relationship where the following occur: No concerns reported THRIVE Score: 0 AUDIT C Alcohol Use Questionnaire (AUDIT-C) 1. How often do you have a drink containing alcohol?: 2-3 times a week 2. How many drinks containing alcohol do you have on a typical day when you are drinking?: 1 or 2 3. How often do you have six or more drinks on one occasion?: Never Total Score: 3 Score Reviewed/Action Taken: No JOAO-7 AMB Questionnaire JOAO-7 Date JOAO - 7 assessed: 01/13/25 Feeling nervous, anxious, or on edge: 0 = Not at all Not being able to stop or control worryin = Not at all Worrying too much about different things: 0 = Not at all Trouble relaxin = Not at all Being so restless that it is hard to sit still: 0 = Not at all Becoming easily annoyed or irritable: 0 = Not at all Feeling afraid as if something awful might happen: 0 = Not at all Total JOAO-7 score (0-4 normal; 5-9 mild; 10-14 moderate; 15-21 severe): 0 Source: Developed by Drs. Ward Lea, May Camacho, Ralph Cooney and colleagues, with an educational clary from [employer]. JOAO-7 Assessment Billing JOAO-7 Assessment Tool: JOAO-7 Assessment 19406 Review of Systems Const Details: - Genitourinary: Reports occasional burning sensation during urination. Denies abnormal discharge. - Constitutional: Reports fatigue. Denies fever. - Musculoskeletal: Reports occasional back discomfort. - Gastrointestinal: Denies nausea or vomiting. - Dermatological: Denies rashes. All systems reviewed & are unremarkable except as noted in HPI and below Physical exam (Primary Care) Tobacco/Smoking Status: Tobacco use Status Tobacco use date assessed 04/19/25 04/19/25 13:36 Patient Tobacco Use Status Never used Tobacco 04/19/25 13:36 PHQ-9: PHQ-9 Score PHQ-9: Total score 0 04/19/25 13:36 Depression Screening Interpretation: Negative Thrive Assessment: Date of Thrive Assessment Date Thrive assessed 01/13/25 04/19/25 13:36 Currently or been in a relationship where the following occur: No concerns reported Telehealth Telehealth Telehealth Platform: Telephone Location of provider rendering services: practice address Location of patient: address on file Patient Identification confirmed using: Name, : Yes Telehealth method: voice only Patient verbally consented to treatment: Yes Patient verbally consented to billing insurance company: Yes Patient informed of any privacy concerns related to visit: Yes Minutes spent on Phone/Video with Pt.: 15 Coding Level of Care Code Tele Est Pt Level 4 (18656) Complex EM visit Add On G2211 Diagnoses UTI (urinary tract infection) N39.0 Additional Codes JOAO-7 Assessment Billing - JOAO-7 Assessment Tool: JOAO-7 Assessment 97231 ([id number]) PHQ-9 - 07362 - PHQ-9 Billing: Yes ([id number]) Assessment & Plan Assessment & Plan (1) UTI (urinary tract infection): Code(s): N39.0 - Urinary tract infection, site not specified Category: Medical Plan: The plan includes ordering a complete blood count (CBC) and comprehensive metabolic panel (CMP) to assess kidney function and electrolyte levels, including magnesium. A urine analysis will be conducted to confirm the presence of a urinary tract infection. The patient will be prescribed Macrobid (nitrofurantoin) to be taken twice daily for five days, but she is advised to complete the lab tests before starting the antibiotic therapy. Plan Plan Patient was informed and verbally consented to the use of an ambient scribe for clinic note documentation during this visit. 1. Urinary Tract Infection The plan includes ordering a complete blood count (CBC) and comprehensive metabolic panel (CMP) to assess kidney function and electrolyte levels, including magnesium. A urine analysis will be conducted to confirm the presence of a urinary tract infection. The patient will be prescribed Macrobid (nitrofurantoin) to be taken twice daily for five days, but she is advised to complete the lab tests before starting the antibiotic therapy. During the telehealth consultation, I discussed with the patient the symptoms suggestive of a urinary tract infection and the need for laboratory tests to confirm the diagnosis and assess kidney function. I explained the prescription of Macrobid and emphasized the importance of completing the lab tests before initiating the antibiotic treatment. The patient was informed about the process of obtaining the lab tests and picking up the prescription from the pharmacy. Patient Instructions: - Complete the blood and urine tests before starting the antibiotics. - Take Macrobid twice daily for five days after completing the tests. - commercial construction superintendent the prescription from the pharmacy after the lab tests are done. - Contact the office if symptoms worsen or do not improve.
== END 2025-04-19 13:59 | disposition home or self-care (01) ==
LOC: HO.HMCSH 13:34
PROVIDERS: PCP Physician Assistant Medical; Visit Provider Physician Assistant Medical
DX: N39.0 Urinary tract infection, site not specified (principal)

== ENCOUNTER 2025-04-19 13:34 | Outpatient (REF) | payer MEDICARE, OTHER, SELFPAY ==
[2025-04-19 15:00] LABS: Hematocrit 43.5 % (37.0-47.0); Hemoglobin 15.0 g/dl (12.0-16.0); Mean Corpuscular HGB Conc 34.5 g/dl (31.0-35.0); Mean Corpuscular Hemoglobin 32.1 pg (27.0-33.0); Mean Corpuscular Volume 92.9 fL (80.0-98.0); NRBC Abs Auto 0.000 X10*3/uL (0.0-0.012); NRBC Pct Auto 0.0 /100WBC (0.0-0.2); Platelet Count 217 X10*3/uL (160-400); Red Blood Count 4.68 X10*6/uL (4.20-5.50); White Blood Count 6.2 X10*3/uL (4.8-10.8)
[2025-04-19 15:11] LABS: Appearance Urine Cloudy; Glucose Urine UA Negative (Negative); PH 5.5 (5.0-9.0); Specific Gravity - Urine 1.020 (1.005-1.025); UMIC TRIGGER UACC YES
[2025-04-19 15:13] LABS: UACC Culture Trigger YES
[2025-04-19 15:30] LABS: Alanine Aminotransferase 32 U/L (0-31); Albumin Level 4.2 g/dL (3.5-5.0); Alkaline Phosphatase 106 U/L (39-117); Anion Gap 10 (12-20); Aspartate Amino Transferase 33 U/L (5-31); Blood Urea Nitrogen 20 mg/dL (9-16); Calcium 9.3 mg/dL (8.4-10.2); Carbon Dioxide 27 mmol/L (22-29); Chloride 110 mmol/L (96-108); Estimated Glomerular Filt Rate 46; Magnesium 2.0 mg/dL (1.6-2.6); Potassium 4.2 mmol/L (3.3-5.1); Sodium 143 mmol/L (135-145); Total Protein 6.9 g/dL (6.5-8.0)
== END 2025-04-19 13:35 | disposition home or self-care (01) ==
LOC: HO.LAB 13:34
PROVIDERS: PCP Physician Assistant Medical; Visit Provider Physician Assistant Medical
DX: Z00.00 Encounter for general adult medical examination without abnormal findings (principal); N39.0 Urinary tract infection, site not specified; Z79.2 Long term (current) use of antibiotics; Z79.899 Other long term (current) drug therapy
CPT/HCPCS: 36415; 80053; 81001; 81003; 83735; 85027; 87086; 87088; 87186; 96127

== ENCOUNTER 2025-04-19 14:56 | Outpatient (AMB) | payer MEDICARE, OTHER, SELFPAY | END 2025-04-19 14:58 | disposition home or self-care (01) | LOC: HO.HMGAL 14:56 | PROVIDERS: PCP Internal Medicine; Visit Provider Registered Nurse Emergency | DX: J30.89 Other allergic rhinitis (principal) | CPT/HCPCS: 95117; 95165 ==

== ENCOUNTER 2025-05-05 12:38 | Outpatient (AMB) | payer MEDICARE, OTHER, SELFPAY | END 2025-05-05 12:46 | disposition home or self-care (01) | LOC: HO.HMGAL 12:38 | PROVIDERS: PCP Internal Medicine; Visit Provider Registered Nurse Emergency | DX: J30.89 Other allergic rhinitis (principal) | CPT/HCPCS: 95117; 95165 ==

== ENCOUNTER 2025-05-12 10:11 | Outpatient (AMB) | payer MEDICARE, OTHER, SELFPAY ==
--- OUTSIDE RECORDS SUMMARY | 2025-03-02 04:30 | XMS_ITS ---
Author Organization [facility] Address [address] [place] [address] Care Team Providers Care Vice President Of Communications Name Role Phone Dale Aguilar Primary Care Provider [phone] Evonne Henderson Unavailable [phone] Vicky Baptiste Unavailable [phone] REASON FOR VISIT r/s for sooner apt Encounters Encounter Location Date Provider Diagnosis [facility] [address] [place] [address] 03/02/2025 Vicky Baptiste Plan Of Treatment No Information Progress Notes * Eloisa GUTIERREZ MDOB:1950 ( 74 yo F)Acc No.[id number]:03/02/2025 Progress Notes Patient: Pura ORTIZyoon Huerta Provider: Kraig Baptiste DPM :1950 A ge:74 Y S ex:Female Date:03/02/2025 Address:[address] [place], [place] [phone] Pcp:Dale Aguilar Subjective: * Chief Complaints: * [...] Baptiste DPM Date: 0 03/02/2025 Generated for Wlado chauhan/Patrick/Genesis on: 1 12:01 PM EDT
--- OUTSIDE RECORDS SUMMARY | 2025-05-12 12:01 | XMS_ITS | Clinical Summary ---
Author Organization [facility] Address [address] [place] [address] Care Team Providers Care Transmitter Engineer Name Role Phone Provider, Unknown Primary Care [...] - 2023-2 5 season) 2025 RSV Vaccine 50 years and old er and Patients (1 - 1-dose 75+ series) 12/26/2026 Hepatitis B Vaccines Aged Out No long er eligible based on patient's age to complete this topic Insurance TRAVELERS Care Teams Transmitter Engineer Relationship Specialty Start Date End Date Provider, Unknown 1 DO NOT USE THIS RECORD PCP - General 06/29/16
--- OUTSIDE RECORDS SUMMARY | 2025-05-12 12:01 | XMS_ITS | Patient Health Record ---
Author Organization [facility] Address [address] [place] [address] Care Team Providers Care Oil Sprayer Name Role Phone Dale Aguilar Primary Care Provider [phone] Evonne Henderson Unavailable [phone] Vicky Baptiste Unavailable [phone] Allergies Allergen (clinical drug ingredient) Drug/Non Drug Allergy documented on EMR Reaction Allergy Type Onset Date Status Enviermental Allergies (uncoded) Unknown Allergy Active scopolamine Scopolamine urinary retention Drug Allergy Active Reason For Referral No Information Medications Medication SIG (Take, Route, Frequency, Duration) Notes Start Date End Date Status Naproxen 500 MG PRN Orally Twice a day PRN Active Simvastatin 20 MG 1 tablet in the even ing Orally Once a day Active Vitamin D 50 MCG (1999 UT) as directed Orally Once a day Active Claritin Active Metoprolol Succinate ER 50 MG 1 tablet Orally Once a day Active Voltaren 1 % as directed Externally Active Medrol cesar 4mg as directed orally a s directed; Duration: 6 days 01/07/2025 Active Sleeve Ironer Syringe No t-Taking Immunizations Vaccine Route Administration Date Status Comme [...] nk containing alcohol in the past year? 2 to 4 times a month (2 points) How many drinks did you have on a typical day when you were drinking in the past year? 1 or 2 drinks (0 point) How often did you have six o r more drinks on one occasion in the past year? Never (0 point) Points 2 Interpretation Negative Problems Problem Type SNOMED Code ICD Code Onset Dates Problem Status W/U Status Risk Notes Problem Localized, primary osteoarthritis of the ankle and/or foot (995530738) Primary osteoarthrit is, right ankle and foot (M19.071) Active confirmed Problem Localized, primary osteoarthritis of the ankle and/or foot (296251874) Primary osteoarthrit is, left ankle and foot (M19.072) Active confirmed Problem Mononeuropathy of lower limb (798437880) Neuritis of right foot (G57.91) Active confirmed Vital Signs Blood pressure diastolic 72 mm Hg 04/26/2025 Height 5ft 4in in 04/26/2025 Blood pressure systolic 130 mm Hg 04/26/2025 Weight 168 lbs 04/26/2025 BMI 28.83 kg/m2 04/26/2025 Procedures Procedure Date Ordered Date Performed Result Body Sit e , [id number]-[id number]/INJECT, JOINT/BURSA 04/26/2025 N/A Encounters Encounter Location Date [facility] [address] 01/07/2025 Evonne Henderson Pain in right foot M79.671 and Neuritis of right foot G57.[address] [address] 03/17/2025 Evonne Henderson Pain in right foot M79.671 and Neuritis of right foot G57.[address] [address] 04/26/2025 Evonne Henderson Bursitis of right foot M77.51 [facility] [address] 01/07/2025 Vicky Baptiste [facility] [address] [place] [address] 01/07/2025 Evonne Henderson Assessments Encounter Date Diagnosis (ICD Code) Assessment Notes Treatment Notes Treatment Clinical Notes Section Notes 01/07/2025 Pain in right foot (ICD-10 - M79.671) 03/17/2025 Pain in right foot (ICD-10 - M79.671) 04/26/2025 Bursitis of right foot (ICD-10 - M77.51) Patient Educated with: RICE THERAPY.pdf (RICE THERAPY.pdf) Patient Educated with: INJECTIONTHERA PY.pdf (INJECTIONTHER APY.pdf) 03/17/2025 Neuritis of right foot (ICD-10 - G57.91) 01/07/2025 Neuritis of right foot (ICD-10 - G57.91) Plan Of Treatment Pending Test Test Name Order Date X ray : Ankle, right 2V 06/19/2021 X ray : Foot, left 3V 06/19/2021 X ray : Foot, right 3V 06/19/2021 X ray : Foot, right 3V 01/07/2025 47726, [id number]/INJECT, JOINT/BURSA 0 04/26/2025 Insurance Providers Payer Name Payer Address Payer Phone Subscriber Number Group Number Insured Name Patient Relationship to Insured Coverage Start Date Coverage End Date Medicare National Govt Svcs Inc [address] [place] [address] [id number] Eloisa Gutierrez Self - patient is the insured [employer] Claims [address] [address] [place] [id number] Eloisa Gutierrez Self - patient is the insured Medical (General) History Medical History History ICD Code CAD (Cholesterol) High blood pressure chronic sinusitis Measles Mumps Chicken pox UTIs in past Back,Hip,and Knee pain Cholesterol covid-19 High Blood Pressure Numbness sinusitis Surgical History Surgery Date(Month/Year) eyes lift 2009 ? nasal septem repair surgery 2018
== END 2025-05-12 10:11 | disposition home or self-care (01) ==
LOC: HO.HMGAL 10:11
PROVIDERS: PCP Internal Medicine; Visit Provider Registered Nurse Emergency
DX: J30.89 Other allergic rhinitis (principal)
CPT/HCPCS: 95117; 95165

== ENCOUNTER 2025-05-14 13:54 | Outpatient (AMB) | payer MEDICARE, OTHER, SELFPAY ==
--- OUTSIDE RECORDS SUMMARY | 2025-03-02 04:30 | XMS_ITS ---
Author Organization [facility] Address [address] [place] [address] Care Team Providers Care Membership Secretary Name Role Phone Dale Aguilar Primary Care Provider [phone] Evonne Henderson Unavailable [phone] Vicky Baptiste Unavailable [phone] REASON FOR VISIT r/s for sooner apt Encounters Encounter Location Date Provider Diagnosis [facility] [address] [place] [address] 03/02/2025 Vicky Baptiste Plan Of Treatment No Information Progress Notes * Eloisa GUTIERREZ MDOB:1950 ( 74 yo F)Acc No.[id number]:03/02/2025 Progress Notes Patient: Pura ORTIZyoon Huerta Provider: Kraig Baptiste DPM :1950 A ge:74 Y S ex:Female Date:03/02/2025 Address:[address] [place], [place] [id number] Pcp:Dale Aguilar Subjective: * Chief Complaints: * [...] 03/02/2025 Generated for Waldo chauhan/Patrick/Genesis on: 1 04:22 PM EDT
--- NOTE | 2025-05-14 13:59 | A.OFFPC_ITS ---
Vital Signs 05/14/25 14:03 Weight 174 lb 2 oz BP 166/73 H Blood Pressure Location Rt brachial Position Sitting Pulse 63 Pulse Source Pulse Oximeter Temp 97.3 F Temp Source Temporal Artery Scan Pulse Oximetry (%) 99 Oxygen Delivery Method Room Air Intake Visit Reasons: Conjunctivitis Intake Note: Started last noc with left eye swelling, D/c started today Security Checker Required: No Accompanied by: Self / Same As Patient Allergies scopolamine Adverse Reaction (Verified 05/14/25 15:08) Unknown Medication List - Last Reconciled 05/14/25 by Mariaelena Michaels PA-C calcium carbonate 600 mg PO BID cholecalciferol (vitamin D3) 50 mcg PO DAILY doxycycline hyclate 100 mg PO BID 10 days erythromycin 0.5 inches ophthalmic (eye) QID loratadine (Claritin) 10 mg PO DAILY metoprolol tartrate 50 mg PO BID naproxen 500 mg PO BID simvastatin 20 mg PO DAILY Tobacco use date assessed: 05/14/25 Fall risk assessment: No Falls in past year Last assessed Fall Risk: 05/14/25 Dental Screening Dental Screen Date: 05/14/25 Did you have a dental visit in the last 12 months?: Yes Was dental information given to patient?: Patient has dentist HPI Conjunctivitis HPI Details The patient is a 74-year-old female presenting with swelling and redness of the left eye. The issue began with puffiness and itchiness of the left eye the previous day, which worsened by the morning of the visit. The patient denies any trauma or use of contact lenses. The condition was identified as blepharitis, an infection of the eyelid, not the eye itself. The patient was advised to use topical erythromycin ointment four times a day for seven to ten days, with warm compresses as supportive care. A refill of the ointment was provided, and oral doxycycline was prescribed as a backup if the condition does not improve within two to three days. [facility] Medical History Blepharitis UTI (urinary tract infection) Nocturnal hypoxemia Tricuspid regurgitation Mild aortic regurgitation Diastolic dysfunction Mild hearing loss Peripheral neuropathy Allergic rhinitis Vitamin D deficiency Overweight with body mass index (BMI) of 29 to 29.9 in adult Osteopenia Osteoporosis Needs sleep apnea assessment Heart murmur History of mammogram (~08/11/24) Flat foot Hypertension Hyperlipidemia History of recurrent UTI (urinary tract infection) Establishing care with new doctor, encounter for Surgical History History of colonoscopy (~02/2024) Family History Father Oral cancer Mother Dementia Social History Housing: House Alcohol intake: current Alcohol intake frequency: a few times a week Alcohol type: wine Patient Tobacco Use Status: Never used Tobacco service: No Current occupational status: retired Cognitive needs: No Hearing needs: No Vision needs: Yes (rx glasses) Questionnaire PHQ-9 Over the last 2 weeks, how often have you been bothered by any of the following problems? 1. Little interest or pleasure in doing things: not at all 2. Feeling down, depressed, or hopeless: not at all 3. Trouble falling or staying asleep, or sleeping too much: not at all 4. Feeling tired or having little energy: not at all 5. Poor appetite or overeating: not at all 6. Feeling bad about yourself - or that you are a failure or have let yourself or your family down: not at all 7. Trouble concentrating on things, such as reading the newspaper or watching television: not at all 8. Moving or speaking so slowly that other people could have noticed. Or the opposite - being so fidgety or restless that you have been moving around a lot more than usual: not at all 9. Thoughts that you would be better off or of hurting yourself in some way: not at all Total score: 0 Depression Screening Interpretation: Negative Depression Screening Done: Yes 17850 - PHQ-9 Billing: Yes Source: Developed by Drs. Ward Lea, May Camacho, Ralph Cooney and colleagues, with an educational clary from [employer]. Thrive Questionnaire Date Thrive assessed: 05/14/25 I am a: Patient What is your living situation today?: I have a steady place to live Within the past 12 months, did the food you bought not last and you didn't have the money to get more?: Never true Within the past 12 months, did you worry whether your food would run out before you got money to buy more?: Never true Do you have trouble paying for medicines?: No Do you have trouble getting transportation to medical appointments?: No Do you have trouble paying your heating and electricity bill?: No Do you have trouble taking care of your child, family member or friend?: No Do you have trouble with day-to-day activities such as bathing, preparing meals, shopping, managing finances, etc.?: No Are you currently unemployed and looking for a job?: No Are you interested in more education?: No Please select the resources that you would like help with: None Currently or been in a relationship where the following occur: No concerns reported THRIVE Score: 0 AUDIT C Alcohol Use Questionnaire (AUDIT-C) 1. How often do you have a drink containing alcohol?: 2-3 times a week 2. How many drinks containing alcohol do you have on a typical day when you are drinking?: 1 or 2 3. How often do you have six or more drinks on one occasion?: Never Total Score: 3 Score Reviewed/Action Taken: No JOAO-7 AMB Questionnaire JOAO-7 Date JOAO - 7 assessed: 05/14/25 Feeling nervous, anxious, or on edge: 0 = Not at all Not being able to stop or control worryin = Not at all Worrying too much about different things: 0 = Not at all Trouble relaxin = Not at all Being so restless that it is hard to sit still: 0 = Not at all Becoming easily annoyed or irritable: 0 = Not at all Feeling afraid as if something awful might happen: 0 = Not at all Total JOAO-7 score (0-4 normal; 5-9 mild; 10-14 moderate; 15-21 severe): 0 Source: Developed by Drs. Ward Lea, May Camacho, Ralph Cooney and colleagues, with an educational clary from [employer]. JOAO-7 Assessment Billing JOAO-7 Assessment Tool: JOAO-7 Assessment 67299 Review of Systems Const Details: - Ophthalmic: Reports swelling and redness of the left eye, denies trauma or use of contact lenses. All systems reviewed & are unremarkable except as noted in HPI and below Physical exam (Primary Care) Vital Signs: Last Vital Signs Temp 97.3 F 05/14/25 14:03 Pulse 63 05/14/25 14:03 BP 166/73 H 05/14/25 14:03 Pulse Ox 99 05/14/25 14:03 Oxygen Delivery Method Room Air 05/14/25 14:03 Care Plan Goal for BP management: <140/90 at Goal Tobacco/Smoking Status: Tobacco use Status Tobacco use date assessed 05/14/25 05/14/25 14:07 Patient Tobacco Use Status Never used Tobacco 05/14/25 14:07 PHQ-9: PHQ-9 Score PHQ-9: Total score 0 05/14/25 14:07 Depression Screening Interpretation: Negative Thrive Assessment: Date of Thrive Assessment Date Thrive assessed 05/14/25 05/14/25 14:07 Currently or been in a relationship where the following occur: No concerns reported Const Other: Appearance: Alert. Oriented X3. No acute distress. Head: Normal external exam. Normocephalic. Atraumatic. Eyes: Left eye lid with swelling and redness, described as blepharitis. Pupils are equal, round, and reactive to light. Extraocular movements intact. Conjunctiva and sclera normal. Eyelids show signs of infection. Throat: Pharynx normal. Uvula midline. Moist mucous membranes. Neck: Normal inspection. Neck supple. Full range of motion. Cardiovascular: Normal heart rate and rhythm. Respiratory: No respiratory distress. Painless inspiration. Back: Full range of motion noted. Skin: Skin warm and dry. Normal skin color. Extremities: Extremities exhibit normal range of motion. Office Procedures Flu Questionnaire Does the patient have a severe egg allergy?: No Does the patient have severe life threatening allergies?: No Does the patient have a fever or illness today?: No Has the patient ever had Guillain-Gastonia Syndrome?: No Has the patient ever had any past reaction to a flu shot?: No Immunizations Fluarix [id number] (PF) 45 mcg (15 mcg x 3)/0.5 mL IM syringe Performing Provider: Mariaelena Michaels PA-C Performing [facility] Documented (not given) by: Mercedes David CMA on 05/14/25 14:10 Reason Not Given: Received Previously Coding Level of Care Code Est Pt Level 4 (99849) Complex EM visit Add On G2211 Diagnoses Blepharitis H01.009 Additional Codes JOAO-7 Assessment Billing - JOAO-7 Assessment Tool: JOAO-7 Assessment 77991 ([id number]) PHQ-9 - 68359 - PHQ-9 Billing: Yes ([id number]) Assessment & Plan Assessment & Plan (1) Blepharitis: Code(s): H01.009 - Unspecified blepharitis unspecified eye, unspecified eyelid Category: Medical Plan: The patient was diagnosed with blepharitis, characterized by swelling and redness of the left eye. The treatment plan includes the application of topical erythromycin ointment four times daily for seven to ten days, along with warm compresses. A refill of the ointment was provided, and oral doxycycline was prescribed as a backup if the condition does not improve within two to three days. Plan Plan Patient was informed and verbally consented to the use of an ambient scribe for clinic note documentation during this visit. 1. Blepharitis The patient was diagnosed with blepharitis, characterized by swelling and redness of the left eye. The treatment plan includes the application of topical erythromycin ointment four times daily for seven to ten days, along with warm compresses. A refill of the ointment was provided, and oral doxycycline was prescribed as a backup if the condition does not improve within two to three days. I discussed with the patient that the swelling and redness of the left eye is due to blepharitis, an infection of the eyelid. I recommended the use of topical erythromycin ointment four times daily for seven to ten days, and warm compresses to alleviate symptoms. I also provided a refill for the ointment and prescribed oral doxycycline as a backup if the condition does not improve within two to three days. Orders: Orders Influenza [id number] Immunization Today Z23 - Encounter for immunization Medications: New erythromycin 0.5 inches ophthalmic (eye) QID 3.5 grams 1RF H01.009 - Unspecified blepharitis unspecified eye, unspecified eyelid doxycycline hyclate 100 mg PO BID 20 tabs 0RF 10 days Patient Instructions: - Apply topical erythromycin ointment to both eyes four times a day for seven to ten days. - Use warm compresses on the eyes to help reduce swelling and discomfort. - If symptoms do not improve in two to three days, start taking the prescribed oral doxycycline. - Avoid touching the tip of the ointment tube to the eye to prevent contamination.
[2025-05-14 14:03] VITALS: BP 166/73; PULSE 63; TEMP 36.3; O2SAT 99
--- OUTSIDE RECORDS SUMMARY | 2025-05-14 16:22 | XMS_ITS | Patient Health Record ---
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 No t-Taking Immunizations Vaccine Route Administration [...] primary osteoarthritis of the ankle and/or foot (851433204) Primary osteoarthrit is, right ankle and foot (M19.071) Active confirmed Problem Localized, primary osteoarthritis of the ankle and/or foot (399143261) Primary osteoarthrit is, left ankle and foot (M19.072) Active confirmed Problem Mononeuropathy of lower limb (695367697) Neuritis of right foot (G57.91) Active confirmed Vital Signs Blood pressure diastolic 72 mm Hg 04/26/2025 Height 5ft 4in in 04/26/2025 Blood pressure systolic 130 mm Hg 04/26/2025 Weight 168 lbs 04/26/2025 BMI 28.83 kg/m2 04/26/2025 Procedures Procedure Date Ordered Date Performed Result Body Sit e , E9342-HNFAR/INJECT, JOINT/BURSA 04/26/2025 N/A Encounters Encounter Location Date [facility] [address] [facility]/07/[facility]25 Evonne Henderson Pain in right foot M79.671 and Neuritis of right foot G57.[address] [address] 03/17/2025 Evonne Henderson Pain in right foot M79.671 and Neuritis of right foot G57.[address] [address] 04/26/2025 Evonne Henderson Bursitis of right foot M77.51 [facility] [address] 01/07/2025 Vicky Baptiste [facility] [address] [place] [address] 01/07/2025 Evonne Henderson Assessments Encounter Date Diagnosis [...] X ray : Foot, right 3V 01/07/2025 79012, P7599-GDSTM/INJECT, JOINT/BURSA 0 04/26/2025 Insurance Providers Payer Name Payer Address Payer Phone Subscriber Number Group Number Insured Name Patient Relationship to Insured Coverage Start Date Coverage End Date Medicare National Govt Sv[employer] Inc [address] [facility] [place] [address] [id number] Eloisa Gutierrez Self - patient is the insured [employer] Claims [address] [address] [place] [id number] [phone] [id number] Eloisa Gutierrez Self - patient is the insured Medical (General) History Medical History History ICD Code CAD (Cholesterol) High blood pressure chronic sinusitis Measles Mumps Chicken pox UTIs in past Back,Hip,and Knee pain Cholesterol covid-19 High Blood Pressure Numbness sinusitis Surgical History Surgery Date(Month/Year) eyes lift 2009 ? nasal septem repair surgery 2018
--- OUTSIDE RECORDS SUMMARY | 2025-05-14 16:22 | XMS_ITS | Clinical Summary ---
Author Organization [facility] Address [address] [place] [address] Care Team Providers Care Collect On Delivery Clerk Name Role Phone Provider, Unknown Primary Care [...] complete this topic Insurance TRAVELERS Care Teams Collect On Delivery Clerk Relationship Specialty Start Date End Date Provider, Unknown 1 DO NOT USE THIS RECORD PCP - General 06/29/16
== END 2025-05-14 14:13 | disposition home or self-care (01) ==
LOC: HO.HMCSH 13:54
PROVIDERS: PCP Internal Medicine; Visit Provider Physician Assistant Medical
DX: Z23 Encounter for immunization (principal); H01.009 Unspecified blepharitis unspecified eye, unspecified eyelid

== ENCOUNTER → 2025-05-14 13:54 | Outpatient (BNVA) | payer MEDICARE, OTHER, SELFPAY | PROVIDERS: PCP Internal Medicine; Visit Provider Physician Assistant Medical | DX: H01.006 Unspecified blepharitis left eye, unspecified eyelid (principal); Z28.89 Immunization not carried out for other reason | CPT/HCPCS: 90471; 96127; 99212 ==

== ENCOUNTER 2025-05-17 14:07 | Outpatient (AMB) | payer MEDICARE, OTHER, SELFPAY | END 2025-05-17 14:10 | disposition home or self-care (01) | LOC: HO.HMGAL 14:07 | PROVIDERS: PCP Internal Medicine; Visit Provider Registered Nurse Emergency | DX: J30.89 Other allergic rhinitis (principal) | CPT/HCPCS: 95117; 95165 ==

== ENCOUNTER 2025-05-24 10:52 | Outpatient (AMB) | payer MEDICARE, OTHER, SELFPAY ==
--- OUTSIDE RECORDS SUMMARY | 2025-05-24 13:29 | XMS_ITS | Clinical Summary ---
Author Organization [facility] Address [address] [place] [address] Care Team Providers Care Cobol Developer Name Role Phone Provider, Unknown Primary Care [...] complete this topic Insurance TRAVELERS Care Teams Cobol Developer Relationship Specialty Start Date End Date Provider, Unknown 1 DO NOT USE THIS RECORD PCP - General 06/29/16
== END 2025-05-24 10:53 | disposition home or self-care (01) ==
LOC: HO.HMGAL 10:52
PROVIDERS: PCP Internal Medicine; Visit Provider Registered Nurse Emergency
DX: J30.89 Other allergic rhinitis (principal)
CPT/HCPCS: 95117; 95165

== ENCOUNTER 2025-05-31 11:02 | Outpatient (AMB) | payer MEDICARE, OTHER, SELFPAY ==
--- OUTSIDE RECORDS SUMMARY | 2025-03-02 03:30 | XMS_ITS ---
Author Organization [facility] Address [address] [place] [address] Care Team Providers Care Engine Assembler Name Role Phone Dale Aguilar Primary Care Provider [phone] Evonne Henderson Unavailable [phone] Vicky Baptiste Unavailable [phone] REASON FOR VISIT r/s for sooner apt Encounters Encounter Location Date Provider Diagnosis [facility] [address] [place] [address] 03/02/2025 Vicky Baptiste Plan Of Treatment No Information Progress Notes * Eloisa GUTIERREZ MDOB:1950 ( 74 yo F)Acc No.[id number]:03/02/2025 Progress Notes Patient: Pura ORTIZyoon Huerta Provider: Kraig Baptiste DPM :1950 A ge:74 Y S ex:Female Date:03/02/2025 Address:[address] [place], [place] [id number] Pcp:Dale Aguilar Subjective: * Chief Complaints: * [...] 03/02/2025 Generated for Waldo chauhan/Patrick/Genesis on: 1 07/31/2024 01:52 PM EST
--- OUTSIDE RECORDS SUMMARY | 2025-05-31 13:53 | XMS_ITS | Clinical Summary ---
Author Organization [facility] Address [address] [place] [address] Care Team Providers Care Automation Consultant Name Role Phone Provider, Unknown Primary Care [...] complete this topic Insurance TRAVELERS Care Teams Automation Consultant Relationship Specialty Start Date End Date Provider, Unknown 1 DO NOT USE THIS RECORD PCP - General 06/29/16
--- OUTSIDE RECORDS SUMMARY | 2025-05-31 13:53 | XMS_ITS | Patient Health Record ---
Author Organization 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 No t-Taking Immunizations Vaccine Route Administration [...] primary osteoarthritis of the ankle and/or foot (329381034) Primary osteoarthrit is, right ankle and foot (M19.071) Active confirmed Problem Localized, primary osteoarthritis of the ankle and/or foot (435344845) Primary osteoarthrit is, left ankle and foot (M19.072) Active confirmed Problem Mononeuropathy of lower limb (393276471) Neuritis of right foot (G57.91) Active confirmed Vital Signs Blood pressure diastolic 72 mm Hg 04/26/2025 Height 5ft 4in in 04/26/2025 Blood pressure systolic 130 mm Hg 04/26/2025 Weight 168 lbs 04/26/2025 BMI 28.83 kg/m2 04/26/2025 Procedures Procedure Date Ordered Date Performed Result Body Sit e , I4748-RCLPT/INJECT, JOINT/BURSA 04/26/2025 N/A Encounters Encounter Location Date [facility] [address] 01/07/2025 Evonne Henderson Pain in right foot M79.671 and Neuritis of right foot G57.[address] [address] 03/17/2025 Evonne Henderson Pain in right foot M79.671 and Neuritis of right foot G57.[address] [address] 04/26/2025 Evonne Henderson Bursitis of right foot M77.51 [facility] [address] 01/07/2025 Vicky Baptiste [facility] [address] [place] [address] 01/07/2025 Evonne Henderson Assessments Encounter Date Diagnosis [...] X ray : Foot, right 3V 01/07/2025 08669, Z2677-PSUIO/INJECT, JOINT/BURSA 0 04/26/2025 Insurance Providers Payer Name Payer Address Payer Phone Subscriber Number Group Number Insured Name Patient Relationship to Insured Coverage Start Date Coverage End Date Medicare National Govt Svcs Inc [address] [facility] [place] [address] [id number] Eloisa Gutierrez Self - patient is the insured [employer] [address] [address] [place] [id number] [phone] [id number] Eloisa Gutierrez Self - patient is the insured Medical (General) History Medical History History ICD Code CAD (Cholesterol) High blood pressure chronic sinusitis Measles Mumps Chicken pox UTIs in past Back,Hip,and Knee pain Cholesterol covid-19 High Blood Pressure Numbness sinusitis Surgical History Surgery Date(Month/Year) eyes lift 2009 ? nasal septem repair surgery 2018
== END 2025-05-31 11:03 | disposition home or self-care (01) ==
LOC: HO.HMGAL 11:02
PROVIDERS: PCP Internal Medicine; Visit Provider Registered Nurse Emergency
DX: J30.89 Other allergic rhinitis (principal)
CPT/HCPCS: 95117; 95165

== ENCOUNTER 2025-06-07 09:29 | Outpatient (AMB) | payer MEDICARE, OTHER, SELFPAY ==
--- OUTSIDE RECORDS SUMMARY | 2025-03-02 03:30 | XMS_ITS ---
Author Organization [facility] Address [address] [place] [address] Care Team Providers Care Egg Breaking Machine Operator Name Role Phone Dale Aguilar Primary Care Provider [phone] Evonne Henderson Unavailable [phone] Vicky Baptiste Unavailable [phone] REASON FOR VISIT r/s for sooner apt Encounters Encounter Location Date Provider Diagnosis [facility] [address] [place] [address] 03/02/2025 Vicky Baptiste Plan Of Treatment No Information Progress Notes * Eloisa GUTIERREZ MDOB:1950 ( 74 yo F)Acc No.[id number]:03/02/2025 Progress Notes Patient: Pura ORTIZyoon Huerta Provider: Kraig Baptiste DPM :1950 A ge:74 Y S ex:Female Date:03/02/2025 Address:[address] [place], [place] [id number] Pcp:Dale Aguilar Subjective: * Chief Complaints: * 1 . R/s for sooner apt. * Medical History: Objective: * Vitals: Assessment: Plan: * Treatment: * Images: * The named appointment provid er may or may not be the originator of this progress note, and it is not deemed complete until electronically signed by the appointment provider. Sign off status: Pending * Provider: Kraig Baptiste DPM Date: 0 03/02/2025 Generated for Waldo chauhan/Patrick/Genesis on: 1 08/07/2024 10:33 AM EST
--- OUTSIDE RECORDS SUMMARY | 2025-06-07 10:34 | XMS_ITS | Clinical Summary ---
Author Organization [facility] Address [address] [place] [address] Care Team Providers Care Glass Products Inspector Name Role Phone Provider, Unknown Primary Care [...] complete this topic Insurance TRAVELERS Care Teams Glass Products Inspector Relationship Specialty Start Date End Date Provider, Unknown 1 DO NOT USE THIS RECORD PCP - General 06/29/16
== END 2025-06-07 09:29 | disposition home or self-care (01) ==
LOC: HO.HMGAL 09:29
PROVIDERS: PCP Pediatrics; Visit Provider Registered Nurse Emergency
DX: J30.89 Other allergic rhinitis (principal)
CPT/HCPCS: 95117; 95165

== ENCOUNTER 2025-06-08 10:26 | Outpatient (REF) | payer MEDICARE, OTHER, SELFPAY ==
--- NOTE | ~2025-06-08 | XR_ITS ---
EXAMINATION: XR CHEST CLINICAL INFORMATION: G47.34 - Idiopathic sleep related nonobstructive alveolar hypoventilation COMPARISON: None available. TECHNIQUE: 2 views of the chest were obtained. FINDINGS: The cardiomediastinal silhouette is within normal limits. The lungs are well expanded. Mild central vascular prominence. There is no focal consolidation, edema, or effusion. No pneumothorax. No acute osseous abnormality. XR/XR chest 2V IMPRESSION: Mild central vascular prominence. No focal consolidation. Electronically signed by: Seven Pedersen MD 06/09/2025 07:50 AM EST
== END 2025-06-08 10:27 | disposition home or self-care (01) ==
LOC: HO.XRAY 10:26
PROVIDERS: PCP Internal Medicine; Referring Provider Physician Assistant Medical; Visit Provider Nurse Practitioner Family
DX: G47.34 Idiopathic sleep related nonobstructive alveolar hypoventilation (principal)
CPT/HCPCS: 71046; 99202

== ENCOUNTER 2025-06-08 10:26 | Outpatient (AMB) | payer MEDICARE, OTHER, SELFPAY ==
--- OUTSIDE RECORDS SUMMARY | 2025-03-02 03:30 | XMS_ITS ---
Author Organization [facility] Address [address] [place] [address] Care Team Providers Care Needle Punch Operator Name Role Phone Dale Aguilar Primary Care Provider Evonne Henderson Unavailable [phone] Vicky Baptiste Unavailable [phone] REASON FOR VISIT r/s for sooner apt Encounters Encounter Location Date Provider Diagnosis [facility] [address] [place] [address] 03/02/2025 Vicky Baptiste Plan Of Treatment No Information Progress Notes * Eloisa GUTIERREZ MDOB:1950 ( 74 yo F)Acc No.[id number]:03/02/2025 Progress Notes Patient: Pura ORTIZyoon Huerta Provider: Kraig Baptiste DPM :1950 A ge:74 Y S ex:Female Date:03/02/2025 Address:[address] [place], [place] [id number] Pcp:Dale Aguilar Subjective: * Chief Complaints: * [...] 03/02/2025 Generated for Waldo chauhan/Patrick/Genesis on: 1 08/08/2024 12:01 PM EST
--- NOTE | 2025-06-08 10:31 | MHC.OFFVIS ---
Vital Signs 06/08/25 10:32 Height 5 ft 3.58 in Weight 173 lb 6 oz BMI 30.2 BP 132/76 Blood Pressure Location Lt brachial Position Sitting Pulse 66 Pulse Source Pulse Oximeter Pulse Oximetry (%) 95 Oxygen Delivery Method Room Air Intake Visit Reasons: ISNH Allergies scopolamine Adverse Reaction (Verified 06/08/25 10:36) Unknown HPI HPI ISNH: Details: Eloisa is a pleasant 74-year-old female, never smoker, with underlying diastolic dysfunction, hypertension, hyperlipidemia, allergic rhinitis and osteoporosis. She was referred by PCP after recent home sleep study revealed nocturnal hypoxemia. The patient underwent a home sleep study due to concerns about sleep apnea, which revealed no sleep apnea but indicated episodes of low oxygen saturation, with levels dropping <88% for 48 minutes during the test, lowest 86%. The patient has no history of smoking or significant occupational exposures, although she reports secondhand smoke exposure from her father. The patient reports a history of allergic rhinitis, characterized by postnasal drip and nasal congestion, particularly in the mornings. She has received allergy shots for years and experienced a severe episode a few years ago, which included persistent postnasal drip and nighttime coughing. Despite treatment with antibiotics, the symptoms persisted but eventually improved to the current state. She denies prior history of asthma/COPD, although denies dyspnea does report labored breathing with moderate exertion. Denies any recent chest imaging. The patient has a newly identified heart murmur, and has upcoming cardiac evaluation. She denies bilateral lower extremity edema orthopnea. [facility] Medical History Blepharitis UTI (urinary tract infection) Nocturnal hypoxemia Tricuspid regurgitation Mild aortic regurgitation Diastolic dysfunction Mild hearing loss Peripheral neuropathy Allergic rhinitis Vitamin D deficiency Overweight with body mass index (BMI) of 29 to 29.9 in adult Osteopenia Osteoporosis Needs sleep apnea assessment Heart murmur History of mammogram (~08/11/24) Flat foot Hypertension Hyperlipidemia History of recurrent UTI (urinary tract infection) Establishing care with new doctor, encounter for Surgical History History of colonoscopy (~02/2024) Family History Father Oral cancer Mother Dementia Social History Housing: House Alcohol intake: current Alcohol intake frequency: a few times a week Alcohol type: wine Patient Tobacco Use Status: Never used Tobacco service: No Current occupational status: retired Cognitive needs: No Hearing needs: No Vision needs: Yes (rx glasses) Review of Systems Const Denies chills, Denies excessive sweating, Denies fever(s), Denies headache(s) and Denies night sweats Eyes Denies dry eyes and Denies irritation ENT Reports Normal hearing present, Denies headache(s) and Denies sore throat Card Denies chest pain, Denies chest pain at rest, Denies chest pain with activity, Denies claudication, Denies leg edema, Denies dyspnea, Denies dyspnea on exertion, Denies orthopnea and Denies paroxysmal nocturnal dyspnea Resp Denies chest congestion, Denies cough, Denies excessive phlegm production, Denies pain on inspiration, Denies pain with cough, Denies dyspnea, Denies dyspnea on exertion, Denies stridor and Denies wheezing Musc Denies myalgias Neuro Reports Normal hearing present and Denies headache(s) Endo Denies excessive sweating Fab/Lymph Denies lymphadenopathy Aller/Immun Denies seasonal rhinorrhea and Denies wheezing Physical Exam Vital Signs: Last Vital Signs Pulse 66 06/08/25 10:32 BP 132/76 06/08/25 10:32 Pulse Ox 95 06/08/25 10:32 Oxygen Delivery Method Room Air 06/08/25 10:32 BMI result Body Mass Index 30.2 Const General: cooperative, healthy appearing, comfortable, no acute distress, well developed and alert Nutritional Appearance: obese Orientation/consciousness: patient oriented x3 Limitations: no limitations HEENT Head: Yes normal to inspection, Yes normocephalic and Yes atraumatic Ears: hearing grossly normal bilaterally and external ears normal Eyes General: appearance normal, both eyes and all related structures Eyelids: Yes eyelids normal Sclerae: sclerae normal EOM: EOMs intact bilaterally Neck Neck: Yes normal visual inspection and Yes no lymphadenopathy Lymphatic: no lymphadenopathy noted Chest Chest palpation & inspection: normal inspection of the chest Resp Effort & Inspection: normal respiratory effort, able to speak in complete sentences, no audible wheezes, no cough, no stridor, not tachypneic, no tripod positioning and no use of accessory muscles Auscultation: clear to auscultation bilaterally Cardio Jugular venous distension: no JVD Rate: regular rate Rhythm: regular rhythm Skin Other: warm, dry General skin exam: no rashes or lesions noted Neuro General: patient oriented x3 Cranial nerves: Yes Normal hearing present Cognition (Neuro): normal cognition Gait exam (Neuro): Normal gait present Extrem General: Yes normal to inspection, Yes capillary refill normal, Yes no clubbing, cyanosis or edema and Yes no pedal edema Psych Appearance: grossly normal and well kempt Speech and movement: Normal speech and movement present and Clear speech present Affect: normal affect Attitude: cooperative Thought process: Normal thought process present Thought content: Normal thought content present Insight: Good insight present (Psych) Judgement: Good judgement present (Psych) Assessment & Plan Assessment & Plan (1) Nocturnal hypoxemia: Comment: Average O2 saturation 89% lowest O2 saturation 86% and O2 saturation below 88% for 49 minutes. This was performed with a sleep study. Code(s): G47.34 - Idiopathic sleep related nonobstructive alveolar hypoventilation Category: Medical (2) Dyspnea on exertion: Code(s): R06.09 - Other forms of dyspnea Category: Medical Plan The plan includes obtaining a chest x-ray to assess for any underlying parenchymal condition contributing to hypoxemia as well as PFT to assess for obstructive/restrictive defect. May consider Chest CT depending on results. The patient will be set up with overnight oxygen therapy, starting with one liter, and monitored with overnight oximetry to ensure resolution of hypoxemia. Consideration for an in-lab sleep study however patient declined at this time. All questions were answered and patient is in agreement of plan. Will follow-up to review results or sooner if needed. Orders: Orders XR chest 2V Today G47.34 - Idiopathic sleep related nonobstructive alveolar hypoventilation PFT pulmonary function test Today R06.09 - Other forms of dyspnea Overnight Pulse Oximetry Today G47.34 - Idiopathic sleep related nonobstructive alveolar hypoventilation Coding Level of Care Code New Pt Level 4 (87742) Diagnoses Nocturnal hypoxemia G47.34 Dyspnea on exertion R06.09
[2025-06-08 10:32] VITALS: BP 132/76; PULSE 66; O2SAT 95; BMI 30.2
--- OUTSIDE RECORDS SUMMARY | 2025-06-08 12:02 | XMS_ITS | Patient Health Record ---
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 No t-Taking Immunizations Vaccine Route Administration [...] primary osteoarthritis of the ankle and/or foot (784643533) Primary osteoarthrit is, right ankle and foot (M19.071) Active confirmed Problem Localized, primary osteoarthritis of the ankle and/or foot (609193368) Primary osteoarthrit is, left ankle and foot (M19.072) Active confirmed Problem Mononeuropathy of lower limb (529282371) Neuritis of right foot (G57.91) Active confirmed Vital Signs Blood pressure diastolic 72 mm Hg 04/26/2025 Height 5ft 4in in 04/26/2025 Blood pressure systolic 130 mm Hg 04/26/2025 Weight 168 lbs 04/26/2025 BMI 28.83 kg/m2 04/26/2025 Procedures Procedure Date Ordered Date Performed Result Body Sit e , F7632-INULJ/INJECT, JOINT/BURSA 04/26/2025 N/A Encounters Encounter [facility] [address] [facility]/07[facility] Evonne Henderson Pain in right foot M79.671 and Neuritis of right foot G57.[address] [address] 03/17/2025 Evonne Henderson Pain in right foot M79.671 and Neuritis of right foot G57.[address] [address] 04/26/2025 Evonne Henderson Bursitis of right foot M77.[facility] [address] 01/07/2025 Vicky Baptiste [facility] [address] [place] [address] 01/07/2025 Evonne Henderson Assessments Encounter Date Diagnosis [...] X ray : Foot, right 3V 01/07/2025 00131, [id number]-YPLKV/INJECT, JOINT/BURSA 0 04/26/2025 Insurance Providers Payer Name Payer Address Payer Phone Subscriber Number Group Number Insured Name Patient Relationship to Insured Coverage Start Date Coverage End Date Medicare National Govt Svcs Inc [address] [facility] [place] [address] [id number] Eloisa Gutierrez Self - patient is the insured [id number] [address] [address] [place] [id number] Eloisa Gutierrez Self - patient is the insured Medical (General) History Medical History History ICD Code CAD (Cholesterol) High blood pressure chronic sinusitis Measles Mumps Chicken pox UTIs in past Back,Hip,and Knee pain Cholesterol covid-19 High Blood Pressure Numbness sinusitis Surgical History Surgery Date(Month/Year) eyes lift 2009 ? nasal septem repair surgery 2018
--- OUTSIDE RECORDS SUMMARY | 2025-06-08 12:02 | XMS_ITS | Clinical Summary ---
Author Organization [facility] Address [address] [place] [address] Care Team Providers Care Balance Assembler Name Role Phone Provider, Unknown Primary [...] complete this topic Insurance TRAVELERS Care Teams Balance Assembler Relationship Specialty Start Date End Date Provider, Unknown 1 DO NOT USE THIS RECORD PCP - General 06/29/16
== END 2025-06-08 11:00 | disposition home or self-care (01) ==
LOC: HO.HPSW 10:27
PROVIDERS: PCP Internal Medicine; Referring Provider Physician Assistant Medical; Visit Provider Nurse Practitioner Family
DX: G47.34 Idiopathic sleep related nonobstructive alveolar hypoventilation (principal); R06.09 Other forms of dyspnea
CPT/HCPCS: 99204

== ENCOUNTER → 2025-06-08 11:34 | Outpatient (BNV) | payer MEDICARE, OTHER, SELFPAY | PROVIDERS: PCP Internal Medicine; Referring Provider Physician Assistant Medical; Visit Provider Radiology Diagnostic Ultrasound | DX: G47.34 Idiopathic sleep related nonobstructive alveolar hypoventilation (principal) | CPT/HCPCS: 71046 ==

== ENCOUNTER 2025-06-08 12:56 | Outpatient (REF) | payer SELFPAY ==
--- NOTE | 2025-06-08 16:04 | MHC.AU.HA1 ---
Hearing Aid Evaluation Date of Visit: 06/08/25 Historical Information: Description of Hearing: Within normal sloping to moderate sensorineural hearing loss, bilaterally Summary: Ready to pursue amplification. Noticing increasing hearing difficulties, often needing to ask for repetition. Active lifestyle, still socializes with friends and family. Shopping, restaurants, social gatherings. Hoping hearing aids will help ease some of her communication difficulties. Discussed options including manufacturers, styles, technology. Opted for rechargeable RITEs compatible with iPhone. Not particularly tech savvy but may consider using bluetooth in future. Hearing Aid Prescription: Based on the individual?s shared listening needs, communication environments, dexterity, desire for connectivity, and personal preferences, the following prescription for amplification has been made: Right ear: Make, Model, Color: Oticon Intent 2 miniRITE-R Color: Honey Beige Battery Size: Rechargeable Internet Application Developer/Slim Tube: 2/85 Type of Earmold/Dome/CShell/SlimTip: 6mm double douglas dome Left ear: Left ear prescription to be same as Right Hearing Aid above: Model Maurice, Color: Oticon Intent 2 miniRITE-R Color: Honey Beige Battery Size: Rechargeable Internet Application Developer/Slim Tube: 2/85 Type of Earmold/Dome/CShell/SlimTip: 6mm double douglas dome Accessories/Assistive Technology: Intake Counselor; TV Connector Plan of Care: Patient wishes to purchase hearing aids as prescribed Action Taken/Action Needed: Hearing Instrument Fitting to be scheduled when materials arrive Primary Diagnosis: H90.3 Bilateral Sensorineural Hearing Loss Signature: Provider: Carlita Raphael, [facility]
== END 2025-06-08 12:57 | disposition home or self-care (01) ==
LOC: HO.HAP 12:56
PROVIDERS: Visit Provider Physician Assistant Medical
DX: Z46.1 Encounter for fitting and adjustment of hearing aid (principal); H90.3 Sensorineural hearing loss, bilateral
CPT/HCPCS: 92590

== ENCOUNTER 2025-06-14 10:36 | Outpatient (AMB) | payer MEDICARE, OTHER, SELFPAY | END 2025-06-14 10:37 | disposition home or self-care (01) | LOC: HO.HMGAL 10:36 | PROVIDERS: PCP Internal Medicine; Visit Provider Registered Nurse Emergency | DX: J30.89 Other allergic rhinitis (principal) | CPT/HCPCS: 95117; 95165 ==

== ENCOUNTER 2025-06-21 11:22 | Outpatient (AMB) | payer MEDICARE, OTHER, SELFPAY ==
--- OUTSIDE RECORDS SUMMARY | 2025-06-21 14:56 | XMS_ITS | Clinical Summary ---
Author Organization [facility] Address [address] [place] [address] Care Team Providers Care Network Architect Manager Name Role Phone Provider, Unknown Primary [...] complete this topic Insurance TRAVELERS Care Teams Network Architect Manager Relationship Specialty Start Date End Date Provider, Unknown 1 DO NOT USE THIS RECORD PCP - General 06/29/16
== END 2025-06-21 11:23 | disposition home or self-care (01) ==
LOC: HO.HMGAL 11:22
PROVIDERS: PCP Internal Medicine; Visit Provider Registered Nurse Emergency
DX: J30.89 Other allergic rhinitis (principal)
CPT/HCPCS: 95117; 95165

== ENCOUNTER 2025-06-28 12:02 | Outpatient (AMB) | payer MEDICARE, OTHER, SELFPAY ==
--- OUTSIDE RECORDS SUMMARY | 2025-06-28 15:52 | XMS_ITS | Clinical Summary ---
Author Organization [facility] Address [address] [place] [address] Care Team Providers Care Rn Lpn Lvn Name Role Phone Provider, Unknown Primary Care [...] complete this topic Insurance TRAVELERS Care Teams Rn Lpn Lvn Relationship Specialty Start Date End Date Provider, Unknown 1 DO NOT USE THIS RECORD PCP - General 06/29/16
== END 2025-06-28 12:03 | disposition home or self-care (01) ==
LOC: HO.HMGAL 12:02
PROVIDERS: PCP Internal Medicine; Visit Provider Registered Nurse Emergency
DX: J30.89 Other allergic rhinitis (principal)
CPT/HCPCS: 95117; 95165

== ENCOUNTER 2025-07-05 10:08 | Outpatient (AMB) | payer MEDICARE, OTHER, SELFPAY | END 2025-07-05 10:09 | disposition home or self-care (01) | LOC: HO.HMGAL 10:08 | PROVIDERS: PCP Internal Medicine; Visit Provider Registered Nurse Emergency | DX: J30.89 Other allergic rhinitis (principal) | CPT/HCPCS: 95117; 95165 ==

== ENCOUNTER 2025-07-05 12:53 | Outpatient (AMB) | payer MEDICARE, OTHER, SELFPAY ==
--- OUTSIDE RECORDS SUMMARY | 2025-03-02 03:30 | XMS_ITS ---
Author Organization [facility] Address [address] [place] [address] Care Team Providers Care Teacher Dramatics Name Role Phone Dale Aguilar Primary Care Provider [phone] Evonne Henderson Unavailable [phone] Vicky Baptiste Unavailable [phone] REASON FOR VISIT r/s for sooner apt Encounters Encounter Location Date Provider Diagnosis [facility] [address] [place] [address] 03/02/2025 Vicky Baptiste Plan Of Treatment No Information Progress Notes * Eloisa GUTIERREZ MDOB:1950 ( 74 yo F)Acc No.[id number]:03/02/2025 Progress Notes Patient: Pura ORTIZyoon Huerta Provider: Kraig Baptiste DPM :1950 A ge:74 Y S ex:Female Date:03/02/2025 Address:[address] [place], [place] [id number] Pcp:Dale Aguilar Subjective: * Chief Complaints: * [...] 03/02/2025 Generated for Waldo chauhan/Patrick/Genesis on: 1 09/05/2024 09:38 PM EST
--- NOTE | 2025-07-05 13:03 | MHC.OFFVIS ---
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 She has prior history of hypertension. She had also recently noted to have nocturnal hypoxemia and currently undergoing workup for the same. She is scheduled for PFT and possible in-lab sleep study. She denies any cardiac symptoms. Denies any exertional chest pain or shortness of breath. She comes for follow up of her echo results and noted murmur. She says a blood pressure is generally well controlled. At 1 time when she forgot to take her metoprolol she developed symptoms of palpitations. She has no symptoms of palpitation otherwise. [facility] Medical History Blepharitis UTI (urinary tract infection) Nocturnal hypoxemia Tricuspid regurgitation Mild aortic regurgitation Diastolic dysfunction Mild hearing loss Peripheral neuropathy Allergic rhinitis Vitamin D deficiency Overweight with body mass index (BMI) of 29 to 29.9 in adult Osteopenia Osteoporosis Needs sleep apnea assessment Heart murmur History of mammogram (~08/11/24) Flat foot Hypertension Hyperlipidemia History of recurrent UTI (urinary tract infection) Establishing care with new doctor, encounter for Surgical History History of colonoscopy (~02/2024) Family History Father Oral cancer Mother Dementia Social History Housing: House Alcohol intake: current Alcohol intake frequency: a few times a week Alcohol type: wine Patient Tobacco Use Status: Never used Tobacco service: No Current occupational status: retired Cognitive needs: No Hearing needs: No Vision needs: Yes (rx glasses) Review of Systems Const Denies chills, Denies daytime sleepiness, Denies fatigue, Denies fever(s), Denies frequent falls, Denies poor appetite, Denies stops breathing during sleep, Denies weakness, Reports weight gain and Denies weight loss Eyes Denies loss of vision ENT Denies dizziness and Reports hearing loss Card Denies chest pain, Denies claudication, Denies leg edema, Denies lightheadedness, Reports palpitations, Denies dyspnea, Denies dyspnea on exertion and Denies orthopnea Resp Denies cough, Denies excessive phlegm production, Denies dyspnea, Denies dyspnea on exertion and Denies wheezing GI Denies abdominal pain, Denies hematochezia, Denies change in bowel habits, Denies nausea and Denies vomiting Denies urinary frequency and Denies dysuria Musc Denies arthralgias, Denies muscle weakness and Denies numbness Skin/Breast Denies nail changes and Denies rash Neuro Denies Abnormal speech present, Denies dizziness, Denies frequent falls, Denies loss of vision, Denies memory loss, Denies numbness and Denies weakness Psych Denies depression and Denies memory loss Endo Denies fatigue and Reports palpitations Fab/Lymph Reports easy bruising and Reports other (anemia) Aller/Immun Denies wheezing Physical Exam Vital Signs: Last Vital Signs Pulse 64 07/05/25 13:04 BP 124/72 07/05/25 13:04 BMI result Body Mass Index 29.9 Const General: cooperative, comfortable, no acute distress, alert, awake and Physically active Nutritional Appearance: overweight Orientation/consciousness: patient oriented x3 Limitations: no limitations HEENT Head: Yes normocephalic and Yes atraumatic Neck Neck: Yes trachea midline, Yes supple and Yes no JVD Resp Effort & Inspection: normal respiratory effort Auscultation: clear to auscultation bilaterally Cardio Jugular venous distension: no JVD Rate: regular rate Rhythm: regular rhythm Heart sounds: S1 normal heart sound present, S2 normal heart sound present, no click, no gallops, no murmurs and no rubs GI Auscultation: normal bowel sounds Skin General skin exam: no rashes or lesions noted Neuro General: patient oriented x3 and no focal motor deficits Speech: No Abnormal speech present Extrem General: Yes no clubbing, cyanosis or edema Office Procedures EKG Details: EKGs shows normal sinus rhythm with poor R-wave progression most likely due to body habitus and lead placement 37307-[id number], Complete Assessment & Plan Assessment & Plan (1) Mild aortic regurgitation: Code(s): I35.1 - Nonrheumatic aortic (valve) insufficiency Category: Medical Plan: Mild aortic regurgitation which is not of clinical concern and clinically not significant. This was discussed with her. Low likelihood of progressive aortic regurgitation was discussed. Will need echocardiogram in 3 years' time. This will be pursued through your office. No interventions required. (2) Hypertension: Code(s): I10 - Essential (primary) hypertension Category: Medical Plan: Hypertension which is currently well optimized on current therapy with metoprolol. Side effects of withdrawal of metoprolol therapy was discussed. She understands. Continue metoprolol therapy low-salt diet was discussed. Encouraged to maintain activity level as tolerated. Currently not having any significant cardiac symptoms and no further workup is indicated. Currently on statin therapy and target goal LDL should be less than 100 mg/dL. At this point time will sign off from her care and she is advised to follow up through your office. Thank you for allowing me to partake in her care Coding Level of Care Code Complex visit Add On G2211 Diagnoses Mild aortic regurgitation I35.1 Hypertension I10 CPT Codes EKG - CPT: 50698-Proewkqgqcpiurnhc, Complete ([id number])
[2025-07-05 13:04] VITALS: BP 124/72; PULSE 64; BMI 29.9
--- OUTSIDE RECORDS SUMMARY | 2025-07-05 21:38 | XMS_ITS | Patient Health Record ---
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 No t-Taking Immunizations Vaccine Route Administration [...] primary osteoarthritis of the ankle and/or foot (886839229) Primary osteoarthrit is, right ankle and foot (M19.071) Active confirmed Problem Localized, primary osteoarthritis of the ankle and/or foot (617627718) Primary osteoarthrit is, left ankle and foot (M19.072) Active confirmed Problem Mononeuropathy of lower limb (304903762) Neuritis of right foot (G57.91) Active confirmed Vital Signs Blood pressure diastolic 72 mm Hg 04/26/2025 Height 5ft 4in in 04/26/2025 Blood pressure systolic 130 mm Hg 04/26/2025 Weight 168 lbs 04/26/2025 BMI 28.83 kg/m2 04/26/2025 Procedures Procedure Date Ordered Date Performed Result Body Sit e , U6583-YYABX/INJECT, JOINT/BURSA 04/26/2025 N/A Encounters Encounter Location Date [facility] [address] 01/07/2025 Evonne Henderson Pain in right foot M79.671 and Neuritis of right foot G57.[address] [address] 03/17/2025 Evonne Henderson Pain in right foot M79.671 and Neuritis of right foot G57.[address] [address] 04/26/2025 Evonne Henderson Bursitis of right foot M77.[address] [facility] [address] 06/17/2025 Evonne Henderson [facility] [address] [place] [address] 01/07/2025 Vicky Oliva [facility] [address] [place] [address] 01/07/2025 Evonne Henderson [facility] [address] [place] [address] 06/17/2025 Evonne Henderson Assessments Encounter Date Diagnosis (ICD [...] X ray : Foot, right 3V 01/07/2025 75502, T1326-WFXIK/INJECT, JOINT/BURSA 0 04/26/2025 Insurance Providers Payer Name Payer Address Payer Phone Subscriber Number Group Number Insured Name Patient Relationship to Insured Coverage Start Date Coverage End Date Medicare National Govt Svcs Inc [address] [place] [address] [id number] Eloisa Gutierrez Self - patient is the insured [employer] [address] [address] [place] [address] [phone] [id number] Eloisa Gutierrez Self - patient is the insured Medical (General) History Medical History History ICD Code CAD (Cholesterol) High blood pressure chronic sinusitis Measles Mumps Chicken pox UTIs in past Back,Hip,and Knee pain Cholesterol covid-19 High Blood Pressure Numbness sinusitis Surgical History Surgery Date(Month/Year) eyes lift 2009 ? nasal septem repair surgery 2019
== END 2025-07-05 13:41 | disposition home or self-care (01) ==
LOC: HO.HCS 12:53
PROVIDERS: PCP Internal Medicine; Visit Provider Internal Medicine Cardiovascular Disease
DX: R94.31 Abnormal electrocardiogram [ECG] [EKG] (principal)
CPT/HCPCS: 93010; 99214; G2211

== ENCOUNTER → 2025-07-05 12:53 | Outpatient (BNVA) | payer MEDICARE, OTHER, SELFPAY | PROVIDERS: PCP Internal Medicine; Visit Provider Internal Medicine Cardiovascular Disease | DX: I35.1 Nonrheumatic aortic (valve) insufficiency (principal); I10 Essential (primary) hypertension; R01.1 Cardiac murmur, unspecified | CPT/HCPCS: 93005; 99212 ==

== ENCOUNTER 2025-07-12 09:48 | Outpatient (AMB) | payer MEDICARE, OTHER, SELFPAY | END 2025-07-12 09:49 | disposition home or self-care (01) | LOC: HO.HMGAL 09:48 | PROVIDERS: PCP Internal Medicine; Visit Provider Registered Nurse Emergency | DX: J30.89 Other allergic rhinitis (principal) | CPT/HCPCS: 95117; 95165 ==

== ENCOUNTER 2025-07-19 12:52 | Outpatient (AMB) | payer MEDICARE, OTHER, SELFPAY ==
--- OUTSIDE RECORDS SUMMARY | 2025-03-02 03:30 | XMS_ITS ---
Author Organization [facility] Address [address] [place] [address] Care Team Providers Care Casing Tester Name Role Phone Dale Aguilar Primary Care Provider Evonne Henderson Unavailable [phone] Vicky Baptiste Unavailable [phone] REASON FOR VISIT r/s for sooner apt Encounters Encounter Location Date Provider Diagnosis [facility] [address] [place] [address] 03/02/2025 Vicky Baptiste Plan Of Treatment No Information Progress Notes * Eloisa GUTIERREZ MDOB:1950 ( 74 yo F)Acc No.[id number]:03/02/2025 Progress Notes Patient: Pura ORTIZyoon Huerta Provider: Kraig Baptiste DPM :1950 A ge:74 Y S ex:Female Date:03/02/2025 Address:[address] [place], [place] [phone] Pcp:Dale Aguilar Subjective: * Chief Complaints: * [...] 03/02/2025 Generated for Waldo chauhan/Patrick/Genesis on: 1 09/19/2024 04:01 PM EST
--- OUTSIDE RECORDS SUMMARY | 2025-07-19 16:02 | XMS_ITS | Clinical Summary ---
Author Organization [facility] Address [address] [place] [address] Care Team Providers Care Band Saw Operator Name Role Phone Provider, Unknown Primary [...] older) 12/26/2016 Influenza Vaccine 02/26/2025 COVID-19 Vaccine (1 - 2024-2 6 season) 2025 RSV Vaccine 50 years and old er and Patients (1 - 1-dose 75+ series) 12/26/2026 Hepatitis B Vaccines Aged Out No long er eligible based on patient's age to complete this topic Insurance TRAVELERS Care Teams Band Saw Operator Relationship Specialty Start Date End Date Provider, Unknown 1 DO NOT USE THIS RECORD PCP - General 06/29/16
--- OUTSIDE RECORDS SUMMARY | 2025-07-19 16:02 | XMS_ITS | Patient Health Record ---
Author Organization [facility] Address [address] [place] [address] Care Team Providers Care Commercial Sheet Metal Foreman Name Role Phone Dale Aguilar Primary Care Provider Evonne Henderson Unavailable [phone] Vicky Baptiste Unavailable [phone] Allergies Allergen (clinical drug ingredient) Drug/Non Drug [...] s directed; Duration: 6 days 01/07/2025 Active Tobacco Cutter Syringe No t-Taking Immunizations Vaccine Route Administration [...] primary osteoarthritis of the ankle and/or foot (612212269) Primary osteoarthrit is, right ankle and foot (M19.071) Active confirmed Problem Localized, primary osteoarthritis of the ankle and/or foot (586637347) Primary osteoarthrit is, left ankle and foot (M19.072) Active confirmed Problem Mononeuropathy of lower limb (255863817) Neuritis of right foot (G57.91) Active confirmed Vital Signs Blood pressure diastolic 72 mm Hg 04/26/2025 Height 5ft 4in in 04/26/2025 Blood pressure systolic 130 mm Hg 04/26/2025 Weight 168 lbs 04/26/2025 BMI 28.83 kg/m2 04/26/2025 Procedures Procedure Date Ordered Date Performed Result Body Sit e , U8023-CNSWI/INJECT, JOINT/BURSA 04/26/2025 N/A Encounters Encounter [facility] Date [facility] [address] [facility]/07/[facility]25 Evonne Henderson Pain in right foot M79.671 and Neuritis of right foot G57.[address] [address] 03/17/2025 Evonne Henderson Pain in right foot M79.671 and Neuritis of right foot G57.[address] [address] 04/26/2025 Evonne Henderson Bursitis of right foot M77.[address] [facility] [address] 06/17/2025 Evonne Henderson [facility] [address] [place] [address] 01/07/2025 Vicky Oliva [facility] [address] [place] [address] 01/07/2025 Evonne Henderson [facility] [address] [place] [address] 06/17/2025 Evonne Henderson Assessments Encounter Date Diagnosis [...] X ray : Foot, right 3V 01/07/2025 [id number], M6104-BKINI/INJECT, JOINT/BURSA 0 04/26/2025 Insurance Providers Payer Name Payer Address Payer Phone Subscriber Number Group Number Insured Name Patient Relationship to Insured Coverage Start Date Coverage End Date Medicare National Govt Svcs Inc [address] [place] [address] [id number] Eloisa Gutierrez Self - patient is the insured [employer] [address] [address] [place] [address] [id number] Eloisa Gutierrez Self - patient is the insured Medical (General) History Medical History History ICD Code CAD (Cholesterol) High blood pressure chronic sinusitis Measles Mumps Chicken pox UTIs in past Back,Hip,and Knee pain Cholesterol covid-19 High Blood Pressure Numbness sinusitis Surgical History Surgery Date(Month/Year) eyes lift 2009 ? nasal septem repair surgery 2019
== END 2025-07-19 12:53 | disposition home or self-care (01) ==
LOC: HO.HMGAL 12:52
PROVIDERS: Visit Provider Registered Nurse Emergency
DX: J30.89 Other allergic rhinitis (principal)
CPT/HCPCS: 95117; 95165

== ENCOUNTER 2025-07-28 10:10 | Outpatient (REF) | payer SELFPAY ==
--- OUTSIDE RECORDS SUMMARY | 2025-03-02 03:30 | XMS_ITS ---
Author Organization [facility] Address [address] [place] [address] Care Team Providers Care Fixture Builder Name Role Phone Dale Aguilar Primary Care Provider [phone] Evonne Henderson Unavailable [phone] Vicky Baptiste Unavailable [phone] REASON FOR VISIT r/s for sooner apt Encounters Encounter Location Date Provider Diagnosis [facility] [address] [place] [address] 03/02/2025 Vicky Baptiste Plan Of Treatment No Information Progress Notes * Eloisa GUTIERREZ MDOB:1950 ( 74 yo F)Acc No.[id number]:03/02/2025 Progress Notes Patient: Pura ORTIZyoon Huerta Provider: Kraig Baptiste DPM :1950 A ge:74 Y S ex:Female Date:03/02/2025 Address:[address] [place], [place] [id number] Pcp:Dale Aguilar Subjective: * Chief Complaints: * [...] 03/02/2025 Generated for Waldo chauhan/Patrick/Genesis on: 1 11:14 AM EST
--- NOTE | 2025-07-28 11:04 | MHC.AU.HA2 ---
Hearing Instrument Fitting- Adult- Binaural Date of Visit: 07/28/25 Hearing Instruments Dispensed: Right Ear: Make, Model, Color, Serial Number: Oticon Intent 2 miniRITE-R SN: [id number] Color: Honey Beige Plastic Installer Repair Warranty: 07/08/2028 Plastic Installer Loss and Damage Warranty: 07/08/2028 [facility] Service Plan: OPTED OUT Battery Size: Rechargeable Machine Assembler Supervisor/Slim Tube: 2/85 Earmold/Dome/CShell/SlimTip: 5mm open douglas dome (no retention tail) Type of Wax Guard: miniFit Left Ear: Make, Model, Color, Serial Number: Oticon Intent 2 miniRITE-R SN: [id number] Color: Honey Beige Plastic Installer Repair Warranty: 07/08/2028 Plastic Installer Loss and Damage Warranty: 07/08/2028 [facility] Service Plan: OPTED OUT Battery Size: Rechargeable Machine Assembler Supervisor/Slim Tube: 2/85 Earmold/Dome/CShell/SlimTip: 5mm open douglas dome (no retention tail) Type of Wax Guard: miniFit Accessories/Assistive Technology: [employer] Sirius SmartCharger SN: [id number]; Connectline TV3 Black SN: [id number] Warranty 07/08/26 Summary of Fitting: Ran feedback analyzer and real ear measures. Comfortable at real ear settings. Noted own voice loud but tolerable. Kept initial information to a minimum at Eloisa's request, only discussing general use and rechargeability and practiced inserting/removing HAs. Explained acclimatization period and discussed importance of daily, consistent use. Did not discuss manually turning on/off, VC use, cleaning, changing domes or wax guards, bluetooth, or TV Connector - will do at follow up. Advised to bring all supplies and TV Connector to follow up. Eloisa inquired about BURNETT use with stethoscope. Recommended trying with HAs in; if uncomfortable or difficulty hearing sounds via stethoscope, may need to remove HAs. May also consider stethoscope with circumaural headphones to use over HAs. Recommendations: A hearing instrument follow-up was scheduled. Diagnosis Code(s): Primary Diagnosis: H90.3 Bilateral Sensorineural Hearing Loss Signature: Provider: Carlita Raphael, [facility]
--- OUTSIDE RECORDS SUMMARY | 2025-07-28 11:15 | XMS_ITS | Patient Health Record ---
Author Organization [facility] Address [address] [place] [address] Care Team Providers Care Juvenile Justice Officer Name Role Phone Dale Aguilar Primary Care Provider Evonne Henderson Unavailable [phone] Vicky Baptiste Unavailable [phone] Allergies Allergen (clinical drug ingredient) Drug/Non Drug [...] s directed; Duration: 6 days 01/07/2025 Active [place] Syringe No t-Taking Immunizations Vaccine Route Administration [...] primary osteoarthritis of the ankle and/or foot (519825739) Primary osteoarthrit is, right ankle and foot (M19.071) Active confirmed Problem Localized, primary osteoarthritis of the ankle and/or foot (739218448) Primary osteoarthrit is, left ankle and foot (M19.072) Active confirmed Problem Mononeuropathy of lower limb (283469388) Neuritis of right foot (G57.91) Active confirmed Vital Signs Blood pressure diastolic 72 mm Hg 04/26/2025 Height 5ft 4in in 04/26/2025 Blood pressure systolic 130 mm Hg 04/26/2025 Weight 168 lbs 04/26/2025 BMI 28.83 kg/m2 04/26/2025 Procedures Procedure Date Ordered Date Performed Result Body Sit e , A5304-RPBQK/INJECT, JOINT/BURSA 04/26/2025 N/A Encounters Encounter Location Date Provider Diagnosis [facility] [address] 01/07/2025 Evonne Henderson Pain in right foot M79.671 and Neuritis of right foot G57.[address] [address] 03/17/2025 Evonne Henderson Pain in right foot M79.671 and Neuritis of right foot G57.[address] [address] 04/26/2025 Evonen Henderson Bursitis of right foot M77.51 [facility] [address] 06/17/2025 Evonne Henderson [facility] [address] [place] [address] 01/07/2025 Vicky Oliva [facility] [address] [place] [address] 01/07/2025 Evonne Henderson [facility] [address] [place] [address] 06/17/2025 Evonne Henderson Assessments Encounter Date Diagnosis [...] X ray : Foot, right 3V 01/07/2025 [id number], E9060-YGKKW/INJECT, JOINT/BURSA 0 04/26/2025 Insurance Providers Payer Name Payer Address Payer Phone Subscriber Number Group Number Insured Name Patient Relationship to Insured Coverage Start Date Coverage End Date Medicare National Govt Svcs Inc [address] [place] [address] [id number] Eloisa Gutierrez Self - patient is the insured [employer] [address] [address] [place] [address] [id number] Eloisa Gutierrez Self - patient is the insured Medical (General) History Medical History History ICD Code CAD (Cholesterol) High blood pressure chronic sinusitis Measles Mumps Chicken pox UTIs in past Back,Hip,and Knee pain Cholesterol covid-19 High Blood Pressure Numbness sinusitis Surgical History Surgery Date(Month/Year) eyes lift 2009 ? nasal septem repair surgery 2019
--- OUTSIDE RECORDS SUMMARY | 2025-07-28 11:15 | XMS_ITS | Clinical Summary ---
Author Organization [facility] Address [address] [place] [address] Care Team Providers Care Terminal Makeup Operator Name Role Phone Provider, Unknown Primary [...] complete this topic Insurance TRAVELERS Care Teams Terminal Makeup Operator Relationship Specialty Start Date End Date Provider, Unknown 1 DO NOT USE THIS RECORD PCP - General 06/29/16
== END 2025-07-28 10:11 | disposition home or self-care (01) ==
LOC: HO.HAP 10:10
PROVIDERS: Visit Provider Internal Medicine
DX: H90.3 Sensorineural hearing loss, bilateral (principal)
CPT/HCPCS: 92700; V5261

== ENCOUNTER 2025-07-28 11:08 | Outpatient (AMB) | payer MEDICARE, OTHER, SELFPAY | END 2025-07-28 11:16 | disposition home or self-care (01) | LOC: HO.HMGAL 11:08 | PROVIDERS: PCP Internal Medicine; Visit Provider Registered Nurse Emergency | DX: J30.89 Other allergic rhinitis (principal) | CPT/HCPCS: 95117; 95165 ==